=== PATIENT | female | born 1940 | race Caucasian/White ===

== ENCOUNTER 2017-07-30 14:36 | Inpatient (IN) | payer MEDICARE, OTHER ==
[~2017-07-30] VITALS: Ht 167.6 cm; Wt 73.1 kg
[2017-07-30] VITALS (11 sets, daily range): BP systolic 131–237; BP diastolic 60–108; PULSE 80–108; RESP 16–20; TEMP 97.9–98.5; O2SAT 94–100
[~2017-07-30 14:36] MED LIST: DARV PO; Z.0.NO CURRENT MEDS
--- NOTE | 2017-07-30 14:45 | PD ---
Physical Exam Date Seen by Provider: Jul 30, 2017 Time Seen by Provider: 14:43 Narrative 77 year old female here for Altered mental status for possibly less than an hour. Friend of patient here and saw patient last normal this am. Around an hour ago patient has become dishoriented with no other obvious neuro deficits. Alert but Oriented x 1 here which is not normal for patient. No obvious trauma. Very hypertensive in triage. Patient was straightback to a room for concern for stroke. Data Data Last Documented VS Vital Signs Date Time Temp Pulse Resp B/P (MAP) Pulse Ox O2 Delivery O2 Flow Rate FiO2 07/30/17:17 91 16 213/98 (136) 100 Nasal Cannula 2.00 07/30/17 14:43 98.5 Orders Orders Electrocardiogram (07/30/17 14:39) Complete Blood Count With Diff (07/30/17 14:39) Comprehensive Metabolic Panel (07/30/17 14:39) Ckmb (Isoenzyme) Profile (07/30/17 14:39) Troponin I (07/30/17 14:39) Prothrombin Time / Inr (Pt) (07/30/17 14:39) Act Partial Throm Time (Ptt) (07/30/17 14:39) Urinalysis - C+S If Indicated (07/30/17 14:39) Magnesium (Mg) (07/30/17 14:39) Thyroid Stimulating Hormone (07/30/17 14:39) Ct Brain W/O Iv Contrast(Rout) (07/30/17 14:39) I-Stat Creatinine (07/30/17 15:13) Labetalol Inj (Trandate Inj) (07/30/17 15:15) Chest, Single Ap (07/30/17 14:39) Nicardipine Inj (Cardene Inj) (07/30/17 15:30) I-Stat Profile (07/30/17 15:13) Labs Laboratory Tests Test 07/30/17 15:12 White Blood Count 6.0 TH/MM3 Red Blood Count 4.99 MIL/MM3 Hemoglobin 14.5 GM/DL Bedside Hemoglobin 14.3 G/DL Hematocrit 43.0 % Bedside Hematocrit 42.0 % Mean Corpuscular Volume 86.2 FL Mean Corpuscular Hemoglobin 29.0 PG Mean Corpuscular Hemoglobin Concent 33.7 % Red Cell Distribution Width 13.8 % Platelet Count 201 TH/MM3 Mean Platelet Volume 8.4 FL Neutrophils (%) (Auto) 59.5 % Lymphocytes (%) (Auto) 34.0 % Monocytes (%) (Auto) 5.0 % Eosinophils (%) (Auto) 1.2 % Basophils (%) (Auto) 0.3 % Neutrophils # (Auto) 3.6 TH/MM3 Lymphocytes # (Auto) 2.0 TH/MM3 Monocytes # (Auto) 0.3 TH/MM3 Eosinophils # (Auto) 0.1 TH/MM3 Basophils # (Auto) 0.0 TH/MM3 CBC Comment DIFF FINAL Differential Comment Bedside Sodium 139 MMOL/L Bedside Potassium 3.7 MMOL/L Bedside Chloride 102 MMOL/L Bedside Blood Urea Nitrogen 14 MG/DL Bedside Creatinine 0.7 MG/DL Bedside Glucose 123 MG/DL [facility] Medical Record Reviewed: Yes Supervised Visit with RIN: Leon Jenkins Jul 30, 2017 14:45
[2017-07-30] MEDS ORDERED: LABETALOL HCL 100 MG/20 ML VIAL IV PUSH ONE (15:15)
--- NOTE | 2017-07-30 15:23 | RADRPT ---
EXAM DATE/TIME: 07/30/2017 15:02 [facility] COMPARISON: No previous studies available for comparison. INDICATIONS : Altered mental status. RADIATION DOSE: 48.92 CTDIvol (mGy) This report was called to Dr. Alcala at 1516 p.m. MEDICAL HISTORY : None SURGICAL HISTORY : None. ENCOUNTER: Initial ACUITY: 1 day PAIN SCALE: Non-responsive LOCATION: cranial TECHNIQUE: Multiple contiguous axial images were obtained of the head. Using automated exposure control and adj ustment of the mA and/or kV according to patient size, radiation dose was kept as low as reasonably a chievable to obtain optimal diagnostic quality images. DICOM format image data is available electro nically for review and comparison. FINDINGS: CEREBRUM: Abnormal. There is a region of intra-axial hemorrhage in the posterior parietal high convexity subcor tical white matter measuring 1.6 x 0.9 cm. There is associated focal loss of cloud-white matter differ entiation. There is mild associated edema with minimal associated mass effect. The ventricles are nor mal for degree of atrophy. No evidence of midline shift. No extra-axial fluid collections are seen. POSTERIOR FOSSA: The cerebellum and brainstem are intact. The 4th ventricle is midline. The cerebellopontine angle i s unremarkable. EXTRACRANIAL: The visualized portion of the orbits is intact. SKULL: The calvaria is intact. No evidence of skull fracture. CONCLUSION: 1. Small focal region of intra-axial hemorrhage in the posterior parietal high convexity subcortical white matter measuring 1.6 x 0.9 cm with associated regional loss of cloud-white matter differentiatio n. Mild associated edema and minimal mass effect. No evidence for extra-axial hemorrhage, hydrocephal us, or herniation at this time. Findings are most consistent with hemorrhagic transformation of small posterior left MCA territory infarct. Differential considerations include mass with lesional hemorrh age. Jeremías Melton MD on July 30, 2017 at 15:13 Board Certified Radiologist. This report was verified electronically.
[2017-07-30] MEDS ORDERED: niCARdipine INJ 25 MG in SODIUM CHLOR 0.9% 250 ML INJ 240 ML IV ONE (15:30)
[2017-07-30 15:33] LABS: I-STAT POTASSIUM 3.7 MMOL/L (3.5-4.9)
[2017-07-30 15:34] LABS: AUTOMATED NEUTROPHIL # 3.6 TH/MM3 (1.8-7.7); BASOPHIL % 0.3 % (0.0-2.0); EOSINOPHIL # 0.1 TH/MM3 (0-0.4); EOSINOPHIL % 1.2 % (0.0-4.0); HEMO FLAGS DIFF FINAL; MEAN CELL VOLUME 86.2 FL (80.0-100.0); MEAN CORPUSCULAR HGB CONC 33.7 % (32.0-36.0); NEUT % 59.5 % (16.0-70.0); PLATELET COUNT 201 TH/MM3 (150-450); RED BLOOD COUNT 4.99 MIL/MM3 (4.00-5.30); RED CELL DISTRIBUTION WIDTH 13.8 % (11.6-17.2)
[2017-07-30 15:41] LABS: APTT (PATIENT) 27.1 SEC (24.3-30.1); INTERNATIONAL NORMALIZED RATIO 0.9 RATIO; PROTHROMBIN TIME - PATIENT 10.2 SEC (9.8-11.6)
--- NOTE | 2017-07-30 15:50 | RADRPT ---
EXAM DATE/TIME: 07/30/2017 15:20 [facility] COMPARISON: No previous studies available for comparison. INDICATIONS : Syncope. MEDICAL HISTORY : None. SURGICAL HISTORY : None. ENCOUNTER: Initial ACUITY: 1 day PAIN SCORE: Non-responsive. LOCATION: Bilateral chest FINDINGS: A single view of the chest demonstrates the lungs to be symmetrically aerated without evidence of mas s, infiltrate or effusion. The cardiomediastinal contours are unremarkable. Osseous structures are intact. CONCLUSION: 1. No acute cardiopulmonary disease. Jeremías Melton MD on July 30, 2017 at 15:48 Board Certified Radiologist. This report was verified electronically.
--- NOTE | 2017-07-30 15:54 | PD ---
HPI Chief Complaint: Stroke Alert Time Seen by Provider: 14:50 Travel History International Travel<30 days: No Contact w/Intl Traveler<30days: No Traveled to known affect area: No History of Present Illness HPI 77yo F was brought in by her best friend because she was unable to speak a little over an hour prior to arrival. She states pt's son said she was speaking normally over an hour ago. Actually currently able to speak more than before. Pt denies any complaints but upon examination, pt has expressive aphasia and cannot name items or do finger to nose test. NIH 4. Denies any anticoagulation. I called stroke alert upon my evaluation of the patient. BP was initially 237/108. PFSH Past Medical History ?: Not Social History Alcohol Use: No Tobacco Use: No Substance Use: No Allergies-Medications (Allergen,Severity, Reaction): Coded Allergies: meperidine (Unverified Allergy, Intermediate, 07/30/17) Reported Meds & Prescriptions Reported Meds & Active Scripts Active Darvocet-N 100 (Propoxyphene Napsylate/Acetam) Tab 1 Tab PO QIDPRN FOR PAIN Reported No Current Meds (Miscellaneous Medication) Misc Review of Systems Except as stated in HPI: all other systems reviewed are Neg Physical Exam Narrative GENERAL: 77yo F in mild distress. SKIN: Focused skin assessment warm/dry. HEAD: Atraumatic. Normocephalic. EYES: Pupils equal and round. No scleral icterus. No injection or drainage. ENT: No nasal bleeding or discharge. Mucous membranes pink and moist. NECK: Trachea midline. No JVD. CARDIOVASCULAR: Regular rate and rhythm. No murmur appreciated. RESPIRATORY: No accessory muscle use. Clear to auscultation. Breath sounds equal bilaterally. GASTROINTESTINAL: Abdomen soft, non-tender, nondistended. MUSCULOSKELETAL: No obvious deformities. No clubbing. No cyanosis. No edema. NEUROLOGICAL: Awake and alert. Expressive aphasia, unable to name items and unable to perform finger to nose test or heel to blanco. Speech is a little slow. Data Data Last Documented VS Vital Signs Date Time Temp Pulse Resp B/P (MAP) Pulse Ox O2 Delivery O2 Flow Rate FiO2 07/30/17 16:37 104 16 173/72 (105) 97 Nasal Cannula 2.00 07/30/17 14:43 98.5 Orders Orders Electrocardiogram (07/30/17 14:39) Complete Blood Count With Diff (07/30/17 14:39) Comprehensive Metabolic Panel (07/30/17 14:39) Ckmb (Isoenzyme) Profile (07/30/17 14:39) Troponin I (07/30/17 14:39) Prothrombin Time / Inr (Pt) (07/30/17 14:39) Act Partial Throm Time (Ptt) (07/30/17 14:39) Urinalysis - C+S If Indicated (07/30/17 14:39) Magnesium (Mg) (07/30/17 14:39) Thyroid Stimulating Hormone (07/30/17 14:39) Ct Brain W/O Iv Contrast(Rout) (07/30/17 14:39) I-Stat Creatinine (07/30/17 15:13) Labetalol Inj (Trandate Inj) (07/30/17 15:15) Chest, Single Ap (07/30/17 14:39) Nicardipine Inj (Cardene Inj) (07/30/17 15:30) I-Stat Profile (07/30/17 15:13) CKMB (07/30/17 15:12) CKMB% (07/30/17 15:12) Admit To Inpatient (07/30/17 ) Code Status (07/30/17 16:26) Vital Signs (Adult) NATHALIE.Q1H (07/30/17 16:26) Activity Bed Rest (07/30/17 16:26) Elevate Head Of Bed (07/30/17 16:26) Neuro Checks . ORDERED (07/30/17 16:26) Intake + Output Q1H (07/30/17 16:26) Diet Npo (07/30/17 Dinner) Sodium Chlor 0.9% 1000 Ml Inj (Ns 1000 M (07/30/17 16:26) Sodium Chloride 0.9% Flush (Ns Flush) (07/30/17 16:30) Sodium Chloride 0.9% Flush (Ns Flush) (07/30/17 21:00) Acetaminophen (Tylenol) (07/30/17 16:30) Famotidine Inj (Pepcid Inj) (07/30/17 21:00) Ondansetron Inj (Zofran Inj) (07/30/17 16:30) Albuterol Neb (Albuterol Neb) (07/30/17 16:30) Complete Blood Count With Diff (07/31/17 04:00) Comprehensive Metabolic Panel (07/31/17 04:00) Act Partial Throm Time (Ptt) (07/31/17 04:00) Prothrombin Time / Inr (Pt) (07/31/17 04:00) Magnesium (Mg) (07/31/17 04:00) Phosphorus (Po4) (07/31/17 04:00) Lactic Acid (07/31/17 04:00) Resp Incentive Spirometry (07/30/17 ) Resp Oxygen Conner C Titrat 1-4 L (07/30/17 ) Copy Messenger / Telemetry NATHALIE.Q8H (07/30/17 16:26) Scd Bilateral/Knee High NATHALIE.BID (07/30/17 16:26) ^ Initiate Protocol (07/30/17 16:26) Instruction (07/30/17 16:26) Misc Nursing Information (07/30/17 16:30) Chlorhexidine 2% Cloth (Chlorhexidine 2% (07/31/17 04:00) Chlorhexidine 2% Cloth (Chlorhexidine 2% (07/30/17 16:30) Mrsa Pcr Surveillance (07/30/17 16:26) Docusate Sodium-Senna (Amy-Colace) (07/30/17 21:00) Magnesium Hydroxide Liq (Milk Of Magnesi (07/30/17 16:30) Sennosides (Senokot) (07/30/17 16:30) Bisacodyl Supp (Dulcolax Supp) (07/30/17 16:30) Lactulose Liq (Lactulose Liq) (07/30/17 16:30) Inpatient Certification (07/30/17 ) Hydralazine Inj (Apresoline Inj) (07/30/17 16:30) Labetalol Inj (Trandate Inj) (07/30/17 16:30) Nitroglycerin 2% Oint (Nitroglycerin 2% (07/30/17 16:30) Admit Order (Ed Use Only) (07/30/17 16:43) Consult Neurosurgery (07/30/17 ) Labs Laboratory Tests Test 07/30/17 15:12 White Blood Count 6.0 TH/MM3 Red Blood Count 4.99 MIL/MM3 Hemoglobin 14.5 GM/DL Bedside Hemoglobin 14.3 G/DL Hematocrit 43.0 % Bedside Hematocrit 42.0 % Mean Corpuscular Volume 86.2 FL Mean Corpuscular Hemoglobin 29.0 PG Mean Corpuscular Hemoglobin Concent 33.7 % Red Cell Distribution Width 13.8 % Platelet Count 201 TH/MM3 Mean Platelet Volume 8.4 FL Neutrophils (%) (Auto) 59.5 % Lymphocytes (%) (Auto) 34.0 % Monocytes (%) (Auto) 5.0 % Eosinophils (%) (Auto) 1.2 % Basophils (%) (Auto) 0.3 % Neutrophils # (Auto) 3.6 TH/MM3 Lymphocytes # (Auto) 2.0 TH/MM3 Monocytes # (Auto) 0.3 TH/MM3 Eosinophils # (Auto) 0.1 TH/MM3 Basophils # (Auto) 0.0 TH/MM3 CBC Comment DIFF FINAL Differential Comment Prothrombin Time 10.2 SEC Prothromb Time International Ratio 0.9 RATIO Activated Partial Thromboplast Time 27.1 SEC Bedside Sodium 139 MMOL/L Blood Urea Nitrogen 13 MG/DL Creatinine 0.72 MG/DL Random Glucose 118 MG/DL Total Protein 7.5 GM/DL Albumin 4.0 GM/DL Calcium Level 9.4 MG/DL Magnesium Level 2.2 MG/DL Alkaline Phosphatase 111 U/L Aspartate Amino Transf (AST/SGOT) 14 U/L Alanine Aminotransferase (ALT/SGPT) 14 U/L Total Bilirubin 0.3 MG/DL Sodium Level 138 MEQ/L Potassium Level 3.7 MEQ/L Chloride Level 103 MEQ/L Carbon Dioxide Level 25.3 MEQ/L Bedside Potassium 3.7 MMOL/L Bedside Chloride 102 MMOL/L Anion Gap 10 MEQ/L Bedside Blood Urea Nitrogen 14 MG/DL Bedside Creatinine 0.7 MG/DL Estimat Glomerular Filtration Rate 78 ML/MIN Bedside Glucose 123 MG/DL Total Creatine Kinase 113 U/L Creatine Kinase MB 1.6 NG/ML Troponin I LESS THAN 0.02 NG/ML Thyroid Stimulating Hormone 3rd Gen 1.480 uIU/ML MDM Medical Decision Making Medical Screen Exam Complete: Yes Emergency Medical Condition: Yes Differential Diagnosis ICH vs. CVA vs. hypertensive emergency Narrative Course 77yo F with aphasia that improved but now has expressive aphasia. Stroke alert was called since onset is a little over an hour. Labs reviewed, no leukocytosis. BMP unremarkable. CXR showed no acute cardiopulmonary disease. CT brain showed small focal region of intra-axial hemorrhage in posterior parietal high convexity subcortical white matter. Findings consistent with hemorrhagic transformation of small posterior left MCA territory infarct. Pt is on nicardipine drip and repeat BP is 198/85 at 50ml/hr. Will increase and titrate for BP systolic <140. Discussed with neurosurgeon Dr. Slaughter. Labs reviewed, no leukocytosis. Troponin negative. TSH normal. Discussed with Dr. Farah accounting manager assistant controller, and accepted to his service. Critical Care Narrative Aggregate critical care time was 45 minutes. Time to perform other separately billable procedures was not included in the critical care time. My time did not include minutes spent treating any other patients simultaneously or on activities that did not directly contribute to the patient's treatment. The services I provided to this patient were to treat and/or prevent clinically significant deterioration that could result in: cardiovascular collapse or . I provided critical care services requiring my management, as noted below: Chart data review, documentation time, medication orders and management, vital sign assessments/reviewing monitor data, ordering and reviewing lab tests, ordering and interpreting/reviewing x-rays and diagnostic studies, care of the patient and discussion of the patient with the admitting physicians. Diagnosis Primary Impression: ICH (intracerebral hemorrhage) Qualified Codes: I61.0 - Nontraumatic intracerebral hemorrhage in hemisphere, subcortical Admitting Information Admitting Physician Requests: Admit Cathi Alcala DO Jul 30, 2017 15:54
--- NOTE | 2017-07-30 16:01 | PD.CONS ---
History of Present Illness Service Neurosurgery Consult Requested By Dr. Alcala -emergency room Reason for Consult Left parietal intracranial hemorrhage Primary Care Physician Unknown Diagnoses: History of Present Illness The patient is a 77-year-old female who presented to the emergency room less than an hour after developing altered mental status. According to a friend who brought her to the emergency room, the patient was relatively normal this morning. However shortly before arrival in the emergency room she became disoriented, confused, but no significant slurred speech or other deficit. She has been ambulating well. No definite weakness. No complaint of headache nausea vomiting or vision problems. Review of Systems Constitutional: DENIES: Fever Eyes: DENIES: Blurred vision, Diplopia Respiratory: DENIES: Shortness of breath Cardiovascular: DENIES: Chest pain Gastrointestinal: DENIES: Abdominal pain, Nausea Musculoskeletal: COMPLAINS OF: Joint pain, Muscle aches, DENIES: Neck pain Neurologic: DENIES: Abnormal gait, Headache Psychiatric: DENIES: Confusion Past Family Social History Allergies: Coded Allergies: meperidine (Unverified Allergy, Intermediate, 07/30/17) Past Medical History Hypertension Denies cardiac, pulmonary, gastrointestinal disease Past Surgical History Bladder surgery Reported Medications Reported Meds & Active Scripts Active Darvocet-N 100 (Propoxyphene Napsylate/Acetam) Tab 1 Tab PO QIDPRN FOR PAIN Reported No Current Meds (Miscellaneous Medication) Misc Family History Her parents had high blood pressure. No cardiac disease Social History Does not smoke cigarettes. No alcohol use Physical Exam Vital Signs Vital Signs Date Time Temp Pulse Resp B/P (MAP) Pulse Ox O2 Delivery O2 Flow Rate FiO2 07/30/17 15:42 91 213/98 07/30/17 15:17 91 16 213/98 (136) 100 Nasal Cannula 2.00 07/30/17 14:43 98.5 83 20 237/108 (151) 94 Room Air Physical Exam GENERAL: This is a well-nourished, well-developed patient, no apparent distress. SKIN: No abrasions, contusion, rash noted. Skin warm and dry. HEAD: Atraumatic. Normocephalic. No temporal or scalp tenderness. EYES: Sclerae are clear and nonicteric ENT: No facial edema or ecchymosis. No periorbital edema. No CSF otorrhea or rhinorrhea. No palpable facial fracture or deformity. NECK: Trachea midline. No cervical spine tenderness. CARDIOVASCULAR: Regular rate and rhythm without murmurs, gallops, or rubs. RESPIRATORY: Clear to auscultation. Breath sounds equal bilaterally. No wheezes , rales, or rhonchi. GASTROINTESTINAL: Abdomen soft, non-tender, nondistended. No hepato-splenomegaly , or palpable masses. No guarding. MUSCULOSKELETAL: Extremities without cyanosis, or edema. No joint tenderness, or edema noted. No calf tenderness. Dorsalis pedis pulses 2+ bilateral NEUROLOGICAL: Awake and alert Oriented X 3 Speech is somewhat slow but clear Conversant and appropriate Follow simple commands well Answers questions slowly but was appropriate responses At least mild diminished judgment and insight Recent and remote memory are mildly impaired No evidence of anxiety or depression Pupils are equal and reactive to accommodation. Extra-ocular movements, visual horn to confrontation, facial sensorimotor, tongue, palate, sternocleidomastoid testing, hearing to finger rub testing, and bilateral shoulder shrug are all intact. Sensation is intact to light touch in all extremities Strength normal major flexion and extension groups all extremities Orlando's absent bilaterally No ankle clonus Plantar responses absent bilateral Fine motor movements mildly impaired right versus left upper extremity Laboratory Laboratory Tests Test 07/30/17 15:12 White Blood Count 6.0 Red Blood Count 4.99 Hemoglobin 14.5 Bedside Hemoglobin 14.3 Hematocrit 43.0 Bedside Hematocrit 42.0 Mean Corpuscular Volume 86.2 Mean Corpuscular Hemoglobin 29.0 Mean Corpuscular Hemoglobin Concent 33.7 Red Cell Distribution Width 13.8 Platelet Count 201 Mean Platelet Volume 8.4 Neutrophils (%) (Auto) 59.5 Lymphocytes (%) (Auto) 34.0 Monocytes (%) (Auto) 5.0 Eosinophils (%) (Auto) 1.2 Basophils (%) (Auto) 0.3 Neutrophils # (Auto) 3.6 Lymphocytes # (Auto) 2.0 Monocytes # (Auto) 0.3 Eosinophils # (Auto) 0.1 Basophils # (Auto) 0.0 CBC Comment DIFF FINAL Differential Comment Prothrombin Time 10.2 Prothromb Time International Ratio 0.9 Activated Partial Thromboplast Time 27.1 Bedside Sodium 139 Bedside Potassium 3.7 Bedside Chloride 102 Bedside Blood Urea Nitrogen 14 Bedside Creatinine 0.7 Bedside Glucose 123 Result Diagram: 07/30/17 1512 Imaging 07/30/17 CT scan head images reviewed by the undersigned. Agree with findings as noted below: Head CT 07/30/17 1439 Signed Impressions: Service Date/Time: Sunday, July 30, 2017 15:02 - CONCLUSION: 1. Small focal region of intra-axial hemorrhage in the posterior parietal high convexity subcortical white matter measuring 1.6 x 0.9 cm with associated regional loss of cloud-white matter differentiation. Mild associated edema and minimal mass effect. No evidence for extra-axial hemorrhage, hydrocephalus, or herniation at this time. Findings are most consistent with hemorrhagic transformation of small posterior left MCA territory infarct. Differential considerations include mass with lesional hemorrhage. Jeremías Melton MD Assessment and Plan Assessment and Plan Impression: 1. Left posterior parietal convexity intracranial-subarachnoid hemorrhage. Hypertensive hemorrhage versus left MCA distribution-watershed region infarct. 2. Hypertension Recommendations: Findings were discussed with emergency room physician. Patient will be admitted to the intensive care unit for close vital signs and neurologic checks. Nicardipine infusion instituted for initial blood pressure control with target 110-140 range. Non-chemical DVT prophylaxis Ulcer prophylaxis Follow-up CT scan head for 07/31/17 Radhames Slaughter MD Jul 30, 2017 16:01
[2017-07-30 16:02] LABS: ANION GAP 10 MEQ/L (5-15); AST (GOT) 14 U/L (15-37); BICARBONATE 25.3 MEQ/L (21.0-32.0); BLOOD UREA NITROGEN 13 MG/DL (7-18); CHLORIDE 103 MEQ/L (98-107); GLOMERULAR FILTRATION RATE 78 ML/MIN (>89); MAGNESIUM 2.2 MG/DL (1.5-2.5); POTASSIUM 3.7 MEQ/L (3.5-5.1); SODIUM (NA) 138 MEQ/L (136-145)
[2017-07-30 16:03] LABS: ALT (GPT) 14 U/L (10-53)
[2017-07-30 16:12] LABS: ALKALINE PHOSPHATASE 111 U/L (45-117); CREATINE KINASE 113 U/L (26-192); TOTAL BILIRUBIN ADULT 0.3 MG/DL (0.2-1.0)
[2017-07-30 16:25] LABS: CKMB 1.6 NG/ML (0.5-3.6)
[2017-07-30] MEDS ORDERED: LACTULOSE SYRUP 20 GM/30 ML CUP PO PRN (16:30)
[2017-07-30] MEDS ORDERED: BISACODYL 10 MG SUPP RECTAL PRN (16:30)
[2017-07-30] MEDS ORDERED: RESP: ALBUTEROL 2.5 MG/3 ML NEB (PRN) INH (16:30)
[2017-07-30] MEDS ORDERED: SODIUM CHLORIDE 0.9% FLUSH 10 ML FLUSH IV FLUSH PRN (16:30)
[2017-07-30] MEDS ORDERED: SENNOSIDES 8.6 MG TAB PO PRN (16:30)
[2017-07-30] MEDS ORDERED: NITROGLYCERIN 2% OINT 1 GM PACKET TOPICAL PRN (16:30)
[2017-07-30] MEDS ORDERED: MISCELLANEOUS NURSING INFORMATION XX SCH (16:30)
[2017-07-30] MEDS ORDERED: CHLORHEXIDINE GLUCONATE 2 % 1 PACK (2 CLOTHS) TOP PRN (16:30)
[2017-07-30] MEDS ORDERED: MAGNESIUM HYDROXIDE SUSP 30 ML CUP PO PRN (16:30)
--- NOTE | 2017-07-30 17:04 | HHI.HP ---
[facility] Service Critical Care Medicine Primary Care Physician Allen Cannon MD Admission Diagnosis intracranial hemorrhage Diagnosis: (1) Hypertensive crisis Diagnosis: Principal (2) ICH (intracerebral hemorrhage) Diagnosis: Principal Chief Complaint: Altered mental status Travel History International Travel<30 Days: No Contact w/Intl Traveler <30 Da: No Traveled to Known Affected Are: No History of Present Illness 77-year-old female. Date of admission 07/30/2017. Past medical history includes hypertension patient presented to [facility] ED when after adequate acute confusional state per friend at bedside. Patient was somewhat disoriented and had unsteady gait. On examination, patient does have right upper extremity weakness. Stroke alert was called and patient was sent for stat CT. Baseline laboratories were within normal limits CT braiin 07/30 revealed small focal region of intra-axial hemorrhage in the posterior parietal high convexity subcortical white matter measuring 1.6 x 0.9 cm with associated regional loss of cloud-white matter differentiation. Mild associated edema and minimal mass effect. No evidence for extra-axial hemorrhage, hydrocephalus, or herniation at this time. Findings are most consistent with hemorrhagic transformation of small posterior left MCA territory infarct. Differential considerations include mass with lesional hemorrhage. Neurosurgery was consulted. Hypertensive hemorrhage versus left MCA distribution -watershed region infarct. Recommend acute systolic blood pressure between 110 and 140[address] head CT in a.m. Review of Systems ROS Limitations: Altered Mental Status Past Family Social History Allergies: Coded Allergies: meperidine (Unverified Allergy, Intermediate, 07/30/17) Past Medical History Hypertension Past Surgical History Bladder sling Reported Medications Darvocet when necessary Active Ordered Medications Reviewed in EMR Family History Brother with diabetes. Mother and father with hypertension. Social History Social alcohol. No tobacco or IV drug use Physical Exam Vital Signs Vital Signs Date Time Temp Pulse Resp B/P (MAP) Pulse Ox O2 Delivery O2 Flow Rate FiO2 07/30/17 16:37 104 16 173/72 (105) 97 Nasal Cannula 2.00 07/30/17 16:10 108 16 189/87 (121) 100 Nasal Cannula 2.00 07/30/17 15:42 91 213/98 07/30/17 15:17 91 16 213/98 (136) 100 Nasal Cannula 2.00 07/30/17 14:43 98.5 83 20 237/108 (151) 94 Room Air Physical Exam GENERAL: SKIN: Warm and dry. HEAD: Atraumatic. Normocephalic. EYES: Pupils equal and round. No scleral icterus. No injection or drainage. ENT: No nasal bleeding or discharge. Mucous membranes pink and moist. NECK: Trachea midline. No JVD. CARDIOVASCULAR: Regular rate and rhythm. RESPIRATORY: No accessory muscle use. Clear to auscultation. Breath sounds equal bilaterally. GASTROINTESTINAL: Abdomen soft, non-tender, nondistended. Hepatic and splenic margins not palpable. MUSCULOSKELETAL: Extremities without clubbing, cyanosis, or edema. No obvious deformities. NEUROLOGICAL: Awake and alert. No obvious cranial nerve deficits. Motor grossly within normal limits. Five out of 5 muscle strength in the arms and legs. Normal speech. PSYCHIATRIC: Appropriate mood and affect; insight and judgment normal. Laboratory Laboratory Tests Test 07/30/17 15:12 White Blood Count 6.0 Red Blood Count 4.99 Hemoglobin 14.5 Bedside Hemoglobin 14.3 Hematocrit 43.0 Bedside Hematocrit 42.0 Mean Corpuscular Volume 86.2 Mean Corpuscular Hemoglobin 29.0 Mean Corpuscular Hemoglobin Concent 33.7 Red Cell Distribution Width 13.8 Platelet Count 201 Mean Platelet Volume 8.4 Neutrophils (%) (Auto) 59.5 Lymphocytes (%) (Auto) 34.0 Monocytes (%) (Auto) 5.0 Eosinophils (%) (Auto) 1.2 Basophils (%) (Auto) 0.3 Neutrophils # (Auto) 3.6 Lymphocytes # (Auto) 2.0 Monocytes # (Auto) 0.3 Eosinophils # (Auto) 0.1 Basophils # (Auto) 0.0 CBC Comment DIFF FINAL Differential Comment Prothrombin Time 10.2 Prothromb Time International Ratio 0.9 Activated Partial Thromboplast Time 27.1 Bedside Sodium 139 Blood Urea Nitrogen 13 Creatinine 0.72 Random Glucose 118 Total Protein 7.5 Albumin 4.0 Calcium Level 9.4 Magnesium Level 2.2 Alkaline Phosphatase 111 Aspartate Amino Transf (AST/SGOT) 14 Alanine Aminotransferase (ALT/SGPT) 14 Total Bilirubin 0.3 Sodium Level 138 Potassium Level 3.7 Chloride Level 103 Carbon Dioxide Level 25.3 Bedside Potassium 3.7 Bedside Chloride 102 Anion Gap 10 Bedside Blood Urea Nitrogen 14 Bedside Creatinine 0.7 Estimat Glomerular Filtration Rate 78 Bedside Glucose 123 Total Creatine Kinase 113 Creatine Kinase MB 1.6 Troponin I LESS THAN 0.02 Thyroid Stimulating Hormone 3rd Gen 1.480 Result Diagram: 07/30/17 1512 07/30/17 1512 Imaging Last Impressions Head CT 07/30/17 1439 Signed Impressions: Service Date/Time: Sunday, July 30, 2017 15:02 - CONCLUSION: 1. Small focal region of intra-axial hemorrhage in the posterior parietal high convexity subcortical white matter measuring 1.6 x 0.9 cm with associated regional loss of cloud-white matter differentiation. Mild associated edema and minimal mass effect. No evidence for extra-axial hemorrhage, hydrocephalus, or herniation at this time. Findings are most consistent with hemorrhagic transformation of small posterior left MCA territory infarct. Differential considerations include mass with lesional hemorrhage. Jeremías Melton MD Chest X-Ray 07/30/171438 Signed Impressions: Service Date/Time: Sunday, July 30, 2017 15:20 - CONCLUSION: 1. No acute cardiopulmonary disease. MD Abimael Knight VTE Risk Assessment Caprini VTE Risk Assessment: Mod/High Risk (score >= 2) Caprini Risk Assessment Model Point Value = 1 Point Value = 2 Point Value = 3 Point Value = 5 Age 41-60 Minor surgery BMI > 25 kg/m2 Swollen legs Varicose veins or History of unexplained or recurrent spontaneous Oral contraceptives or hormone replacement Sepsis (< 1 month) Serious lung disease, including pneumonia (< 1 month) Abnormal pulmonary function Acute myocardial infarction Congestive heart failure (< 1 month) History of inflammatory bowel disease Medical patient at bed rest Age 61-74 Arthroscopic surgery Major open surgery (> 45 min) Laparoscopic surgery (> 45 min) Malignancy Confined to bed (> 72 hours) Immobilizing plaster cast Central venous access Age >= 75 History of VTE Family history of VTE Factor V Leiden Prothrombin [id number] Lupus anticoagulant Anticardiolipin antibodies Elevated serum homocysteine Heparin-induced thrombocytopenia Other congenital or acquired thrombophilia Stroke (< 1 month) Elective arthroplasty Hip, pelvis, or leg fracture Acute spinal cord injury (< 1 month) Prophylaxis Regimen Total Risk Factor Score Risk Level Prophylaxis Regimen 0-1 Low Early ambulation 2 Moderate Order ONE of the following: *Sequential Compression Device (SCD) *Heparin 5000 units SQ BID 3-4 Higher Order ONE of the following medications: *Heparin 5000 units SQ TID *Enoxaparin/Lovenox 40 mg SQ daily (WT < 150 kg, CrCl > 30 mL/min) *Enoxaparin/Lovenox 30 mg SQ daily (WT < 150 kg, CrCl > 10-29 mL/min) *Enoxaparin/Lovenox 30 mg SQ BID (WT < 150 kg, CrCl > 30 mL/min) AND/OR *Sequential Compression Device (SCD) 5 or more Highest Order ONE of the following medications: *Heparin 5000 units SQ TID (Preferred with Epidurals) *Enoxaparin/Lovenox 40 mg SQ daily (WT < 150 kg, CrCl > 30 mL/min) *Enoxaparin/Lovenox 30 mg SQ daily (WT < 150 kg, CrCl > 10-29 mL/min) *Enoxaparin/Lovenox 30 mg SQ BID (WT < 150 kg, CrCl > 30 mL/min) AND *Sequential Compression Device (SCD) Assessment and Plan Assessment and Plan Neuro/Psych: Left parietal intraaxial hemorrhage Expressive aphasia CT brain 07/30 - Small focal region of intra-axial hemorrhage in the posterior parietal high convexity subcortical white matter measuring 1.6 x 0.9 cm with associated regional loss of cloud-white matter differentiation. Mild associated edema and minimal mass effect. No evidence for extra-axial hemorrhage, hydrocephalus, or herniation at this time. Findings are most consistent with hemorrhagic transformation of small posterior left MCA territory infarct. Neurosurgery - Dr. Slaughter recommends to systolic pressure between 110-140. repeat head CT in a.m. CV: Hypertension crisis Currently on Cardene drip to keep systolic pressure was 140 As needed labetalol, hydralazine and Nitropaste ordered as well Patient is noncompliant with anti-hypertensive according to people bedside Resp: Nasal cannula to maintain saturations greater than equal to 92% Incentive spirometry while awake GI: Nothing by mouth Famotidine for GI prophylaxis Docusate sodium/senna for bowel regimen : No indication for Morales catheter Endo: Sliding-scale insulin if indicated to maintain euglycemia Renal: Creatinine currently within normal limits Currently normal saline at 70 cc an hour Heme: CBC and coags within normal limits ID: Monitor for infection MSK: Physical therapy evaluate and treat FEN: Replace electrolytes as clinically indicated Access - Utilize peripheral IV. Central line if indicated Prophylaxis - GI -famotidine - DVT - SCD/pharmacological prophylaxis contra indicated with intracerebral hemorrhage Critical Care: The total critical care time was 35 minutes. Time to perform other separately billable procedures was not included in the critical care time. Code Status Full code Discussed Condition With Daughter. Dr. Alcala. Care plan discussed and all questions answered. Problem Qualifiers (1) ICH (intracerebral hemorrhage): Qualified Codes: I61.0 - Nontraumatic intracerebral hemorrhage in hemisphere, subcortical Rashad Farah MD Jul 30, 2017 17:04
[2017-07-30] MEDS: ONDANSETRON HCL 4 MG/2 ML VIAL IV PUSH PRN (19:06)
[2017-07-30] MEDS: SODIUM CHLOR 0.9% 1000 ML INJ 1,000 ML IV SCH (20:00)
[2017-07-30] MEDS: DOCUSATE SODIUM 50 MG/SENNA 8.6 MG TAB PO SCH (21:00)
[2017-07-30] MEDS: SODIUM CHLORIDE 0.9% FLUSH 10 ML FLUSH IV FLUSH SCH (22:16)
[2017-07-30] MEDS: FAMOTIDINE 20 MG/2 ML VIAL IV PUSH SCH (22:17)
[2017-07-31] VITALS (11 sets, daily range): BP systolic 124–147; BP diastolic 58–88; PULSE 61–83; RESP 16–23; TEMP 97.5–98.6; O2SAT 95–98
[2017-07-31] MEDS: niCARdipine 25 MG/NS 250 ML Vial2Bag or IV room IV PRN ×4 (00:25→05:50)
[2017-07-31] MEDS: CHLORHEXIDINE GLUCONATE 2 % 1 PACK (2 CLOTHS) TOP SCH (04:00)
[2017-07-31 04:56] LABS: AUTOMATED NEUTROPHIL # 5.7 TH/MM3 (1.8-7.7); BASOPHIL % 0.5 % (0.0-2.0); EOSINOPHIL % 0.6 % (0.0-4.0); HEMO FLAGS DIFF FINAL; LYMPH % 20.6 % (9.0-44.0); LYMPHOCYTE # 1.6 TH/MM3 (1.0-4.8); MEAN CELL VOLUME 86.8 FL (80.0-100.0); MEAN CORPUSCULAR HEMOGLOBIN 29.3 PG (27.0-34.0); MEAN CORPUSCULAR HGB CONC 33.8 % (32.0-36.0); MONO % 4.7 % (0.0-8.0); NEUT % 73.6 % (16.0-70.0); PLATELET COUNT 201 TH/MM3 (150-450); RED BLOOD COUNT 4.72 MIL/MM3 (4.00-5.30); RED CELL DISTRIBUTION WIDTH 13.6 % (11.6-17.2); WHITE BLOOD COUNT 7.7 TH/MM3 (4.0-11.0)
[2017-07-31 05:05] LABS: APTT (PATIENT) 26.8 SEC (24.3-30.1); INTERNATIONAL NORMALIZED RATIO 0.9 RATIO; PROTHROMBIN TIME - PATIENT 10.3 SEC (9.8-11.6)
--- NOTE | 2017-07-31 05:09 | RADRPT ---
EXAM DATE/TIME: 07/31/2017 04:55 [facility] COMPARISON: CT BRAIN W/O CONTRAST, July 30, 2017, 15:02. INDICATIONS : Follow up intracranial hemorrhage. RADIATION DOSE: 32.16 CTDIvol (mGy) MEDICAL HISTORY : None SURGICAL HISTORY : None. ENCOUNTER: Subsequent ACUITY: 1 day PAIN SCALE: Non-responsive LOCATION: cranial TECHNIQUE: Multiple contiguous axial images were obtained of the head. Using automated exposure control and adj ustment of the mA and/or kV according to patient size, radiation dose was kept as low as reasonably a chievable to obtain optimal diagnostic quality images. DICOM format image data is available electro nically for review and comparison. FINDINGS: Minimal parenchymal contusion in the high convexity left parietal region is unchanged. No new acute f indings identified. Ventricles are stable symmetric and normal. There is nothing to suggest acute inf arction. No evidence of brain mass. Extracranial structures are stable CONCLUSION: Stable brain appearance Gee Naik MD on July 31, 2017 at 5:05 Board Certified Radiologist. This report was verified electronically.
[2017-07-31 05:27] LABS: ANION GAP 7 MEQ/L (5-15); AST (GOT) 11 U/L (15-37); BICARBONATE 25.8 MEQ/L (21.0-32.0); BLOOD UREA NITROGEN 7 MG/DL (7-18); CHLORIDE 106 MEQ/L (98-107); GLOMERULAR FILTRATION RATE 119 ML/MIN (>89); MAGNESIUM 2.1 MG/DL (1.5-2.5); POTASSIUM 3.5 MEQ/L (3.5-5.1); SODIUM (NA) 139 MEQ/L (136-145)
[2017-07-31 05:33] LABS: ALKALINE PHOSPHATASE 102 U/L (45-117); ALT (GPT) 13 U/L (10-53); TOTAL BILIRUBIN ADULT 0.4 MG/DL (0.2-1.0)
[2017-07-31] MEDS: SODIUM CHLOR 0.9% 1000 ML INJ 1,000 ML IV SCH ×2 (05:58→16:16)
[2017-07-31] MEDS: DOCUSATE SODIUM 50 MG/SENNA 8.6 MG TAB PO SCH ×2 (09:00→21:03)
[2017-07-31] MEDS: SODIUM CHLORIDE 0.9% FLUSH 10 ML FLUSH IV FLUSH SCH ×2 (09:00→21:04)
[2017-07-31] MEDS: FAMOTIDINE 20 MG/2 ML VIAL IV PUSH SCH ×2 (10:00→21:03)
--- NOTE | 2017-07-31 10:41 | HHI.CCPN ---
Subjective Remarks/Hospital Course 77-year-old female. Date of admission 07/30/2017. Past medical history includes hypertension patient presented to [facility] ED when after adequate acute confusional state per friend at bedside. Patient was somewhat disoriented and had unsteady gait. On examination, patient does have right upper extremity weakness. Stroke alert was called and patient was sent for stat CT. Baseline laboratories [facility] revealed small focal region of intra-axial hemorrhage in the posterior parietal high convexity subcortical white matter measuring 1.6 x 0.9 cm with associated regional loss of cloud-white matter differentiation. Mild associated edema and minimal mass effect. No evidence for extra-axial hemorrhage, hydrocephalus, or herniation at this time. Findings are most consistent with hemorrhagic transformation of small posterior left MCA territory infarct. Differential considerations include mass with lesional hemorrhage. Neurosurgery was consulted. Hypertensive hemorrhage versus left MCA distribution -watershed region infarct. Recommend acute systolic blood pressure between 110 and 140[address] in a.m. SUBJECTIVE: 07/31: Currently resting in bed in no acute distress. Right-sided weakness resolved. Awake and oriented person place but not year. Expressive aphasia much improved. Denies headache. Objective Vital Signs Date Time Temp Pulse Resp B/P (MAP) Pulse Ox O2 Delivery O2 Flow Rate FiO2 07/31/17 08:22 95 Nasal Cannula 2.00 07/31/17 06:00 69 07/31/17 06:00 97.5 20 127/58 (81) Intake and Output 07/31/17 07/31/17 07/31/17 07:59 15:59 23:59 Intake Total 1542 ml Output Total 1000 ml Balance 542 ml Result Diagram: 07/31/17 0443 07/31/17 0443 Imaging Last Impressions Head CT 07/31/17 0600 Signed Impressions: Service Date/Time: Monday, July 31, 2017 04:55 - CONCLUSION: Stable brain appearance Gee Naik MD Chest X-Ray 07/30/17 0939 Signed Impressions: Service Date/Time: Sunday, July 30, 2017 15:20 - CONCLUSION: 1. No acute cardiopulmonary disease. Jeremías Melton MD Objective Remarks GENERAL: 69-year-old female, critically ill currently resting in bed in no acute distress SKIN: Warm and dry. HEAD: Atraumatic. Normocephalic. EYES: Pupils equal and round. No scleral icterus. No injection or drainage. ENT: No nasal bleeding or discharge. Mucous membranes pink and moist. NECK: Trachea midline. No JVD. CARDIOVASCULAR: Regular rate and rhythm. S1, S2. No S4. RESPIRATORY: No accessory muscle use. Clear to auscultation. Breath sounds equal bilaterally. GASTROINTESTINAL: Abdomen soft, non-tender, nondistended. Hepatic and splenic margins not palpable. MUSCULOSKELETAL: Extremities without clubbing, cyanosis, or edema. No obvious deformities. NEUROLOGICAL: Awake and alert. No obvious cranial nerve deficits. Motor grossly within normal limits. Five out of 5 muscle strength in the arms and legs. Expressive aphasia A/P Assessment and Plan Neuro/Psych: Left parietal intraaxial hemorrhage Expressive aphasia CT brain 07/30 - Small focal region of intra-axial hemorrhage in the posterior parietal high convexity subcortical white matter measuring 1.6 x 0.9 cm with associated regional loss of cloud-white matter differentiation. Mild associated edema and minimal mass effect. No evidence for extra-axial hemorrhage, hydrocephalus, or herniation at this time. Findings are most consistent with hemorrhagic transformation of small posterior left MCA territory infarct. Neurosurgery - Dr. Slaughter recommends to systolic pressure between 110-140. repeat head CT in a.m. 07/31 stable CV: Hypertension crisis Currently on Cardene drip to keep systolic pressure was 140 and currently at 5 mg an hour As needed labetalol, hydralazine and Nitropaste ordered as well We'll start lisinopril 5 mg twice a day and amlodipine 2.5 mg daily Patient is noncompliant with anti-hypertensive according to people bedside Resp: Nasal cannula to maintain saturations greater than equal to 92% Incentive spirometry while awake GI: Nothing by mouth. Advance diet per speech therapy Famotidine for GI prophylaxis Docusate sodium/senna for bowel regimen : No indication for Morales catheter Endo: Sliding-scale insulin if indicated to maintain euglycemia Renal: Creatinine currently within normal limits Currently normal saline at 70 cc an hour Heme: CBC and coags within normal limits ID: Monitor for infection MSK: Physical therapy evaluate and treat FEN: Replace electrolytes as clinically indicated Access - Utilize peripheral IV. Central line if indicated Prophylaxis - GI -famotidine - DVT - SCD/pharmacological prophylaxis contra indicated with intracerebral hemorrhage Level II follow-up Rashad Farah MD Jul 31, 2017 10:41
[2017-07-31] MEDS ORDERED: ENALAPRILAT 2.5 MG/2 ML VIAL IV PUSH PRN (11:00)
--- NOTE | 2017-07-31 11:29 | RADRPT ---
EXAM DATE/TIME: 07/31/2017 10:28 [facility] COMPARISON: No previous studies available for comparison. INDICATIONS : Cerebrovascular accident. MEDICAL HISTORY : Hypertension. Intracranial hemorrhage. Altered mental status. SURGICAL HISTORY : Bladder sling. ENCOUNTER: Initial ACUITY: 1 day PAIN SCORE: 2/10 LOCATION: Bilateral neck PEAK SYSTOLIC VELOCITIES (cm/sec): ICA/CCA RATIO: Right: 1.3 Left: 0.7 ICA: Right: 122 Left: 80 CCA: Right: 93 Left: 108 ECA: Right: 171 Left: 127 VERTEBRAL: Right: 49 antegrade Left: 56 antegrade Elevated flow velocities and ICA/CCA ratios have been found to correlate with increased degrees of vessel stenosis, calculated as percentage of diameter relative to a normal segment of distal ICA/CCA FINDINGS: RIGHT CAROTID: There is no evidence for a hemodynamically significant carotid stenosis. Minimal int imal hyperplasia is present with scattered calcific plaque. LEFT CAROTID: There is no evidence for a hemodynamically significant carotid stenosis. Minimal inti mal hyperplasia is present with scattered calcific plaque. VERTEBRAL ARTERIES: Flow is antegrade in both vertebral arteries. MISCELLANEOUS: There are no ancillary masses or adenopathy. CONCLUSION: Negative examination for a hemodynamically significant carotid stenosis. Board Certified Radiologist. This report was verified electronically.
[2017-07-31] MEDS ORDERED: amLODIPine BESYLATE 5 MG TAB PO ONE (11:30)
[2017-07-31] MEDS ORDERED: PILL SPLITTER OTHER PRN (11:30)
[2017-07-31] MEDS: LISINOPRIL 5 MG TAB PO SCH ×2 (11:32→21:03)
--- NOTE | 2017-07-31 17:18 | ECHRPT ---
Indication: CVA/TIA CONCLUSIONS The left ventricular systolic function is hyperdynamic with an estimated ejection fraction in the ra nge of 65- 70%. Wall thickness is measured at the upper limits of normal. Normal left ventricular size. There is mild tricuspid valve regurgitation. The estimated pulmonary arterial pressure is 45 mmHg. BP: 127 / 58 HR: 63 Rhythm: Sinus MEASUREMENTS (Male / Female) Normal Values Technical Quality:Good 2D ECHO LV Diastolic Diameter PLAX 5.0 cm 4.2 - 5.9 / 3.9 - 5.3 cm LV Systolic Diameter PLAX 3.5 cm IVS Diastolic Thickness 1.1 cm 0.6 - 1.0 / 0.6 - 0.9 cm LVPW Diastolic Thickness 1.1 cm 0.6 - 1.0 / 0.6 - 0.9 cm LV Relative Wall Thickness 0.5 LVOT Diameter 2.3 cm M-MODE Aortic Root Diameter MM 2.5 cm LA Systolic Diameter MM 3.8 cm LA Ao Ratio MM 1.5 AV Cusp Separation MM 1.7 cm DOPPLER AV Peak Velocity 172.0 cm/s AV Peak Gradient 11.8 mmHg LVOT Peak Velocity 113.0 cm/s LVOT Peak Gradient 5.1 mmHg AV Area Cont Eq pk 2.7 cm Mitral E Point Velocity 84.9 cm/s Mitral A Point Velocity 98.7 cm/s Mitral E to A Ratio 0.9 LV E' Lateral Velocity 6.3 cm/s Mitral E to LV E' Lateral Ratio 13.4 LV E' Septal Velocity 5.4 cm/s Mitral E to LV E' Septal Ratio 15.8 TR Peak Velocity 296.0 cm/s TR Peak Gradient 35.0 mmHg Right Atrial Pressure 10.0 mmHg Pulmonary Artery Systolic Pressu 45.0 mmHg Right Ventricular Systolic Press 45.0 mmHg PV Peak Velocity 115.0 cm/s PV Peak Gradient 5.3 mmHg FINDINGS LEFT VENTRICLE The left ventricular systolic function is hyperdynamic with an estimated ejection fraction in the ra nge of 65- 70%. Wall thickness is measured at the upper limits of normal. Normal left ventricular size. RIGHT VENTRICLE Normal right ventricular size and systolic function. LEFT ATRIUM The left atrial size is normal. RIGHT ATRIUM The right atrial size is normal. ATRIAL SEPTUM Normal atrial septal thickness without atrial level shunting by limited color doppler interrogation. AORTA The aortic root and proximal ascending aorta are normal in size on limited imaging. MITRAL VALVE Structurally normal mitral valve. No mitral valve stenosis or regurgitation. AORTIC VALVE Trileaflet aortic valve. No aortic valve stenosis or regurgitation. TRICUSPID VALVE There is mild tricuspid valve regurgitation. The estimated pulmonary arterial pressure is 45 mmHg. PULMONARY VALVE No pulmonary valve regurgitation or stenosis. VESSELS The inferior vena cava is normal in size. PERICARDIUM No pericardial effusion. Samia Martins MD, FACC (Electronically Signed) Final Date:31 July 2017 17:17
--- NOTE | 2017-07-31 20:17 | HHI.NSPN ---
History Chief Complaint: no complaints Interval History 77-year-old female with acute onset of speech deficit, right side weakness Initial CT scan with left parietal proximal hemorrhage. 07/31/17: Doing well with diet, ambulated well in therapy today. No complaint of headache. Exam Results Vital Signs Date Time Temp Pulse Resp B/P (MAP) Pulse Ox O2 Delivery O2 Flow Rate FiO2 07/31/17 16:00 98.6 72 23 140/63 (88) 07/31/17 08:22 95 Nasal Cannula 2.00 Intake and Output 07/31/17 07/31/17 07/31/17 07:59 15:59 23:59 Intake Total 1542 ml 1846 ml Output Total 1000 ml 1600 ml Balance 542 ml 246 ml Physical Examination Respirations clear and nonlabored Heart rate regular Abdomen soft Awake and alert Oriented X 3 Speech is clear Conversant and appropriate Follow simple commands well Answers questions appropriately Reasonable judgment and insight Recent and remote memory mildly impaired. No evidence of anxiety or depression Pupils are equal and reactive to accommodation. Extra-ocular movements, visual horn to confrontation, facial sensorimotor, tongue, palate, sternocleidomastoid testing, hearing to finger rub testing, and bilateral shoulder shrug are all intact. Sensation is intact to light touch in all extremities Strength normal major flexion and extension groups all extremities . No definite residual right hemiparesis Orlando's absent bilaterally No ankle clonus Plantar responses absent bilateral Fine motor movements mildly slowed right greater than left upper extremities Lab, Micro, Other Results 07/31/17 CT scan head images reviewed by the undersigned. There is early improvement in the left parietal parenchymal hemorrhage, now very faint and without significant mass effect. Head CT 07/31/17 0600 Signed Impressions: Service Date/Time: Monday, July 31, 2017 04:55 - CONCLUSION: Stable brain appearance Gee Naik MD Carotid Artery Ultrasound 07/31/17 0000 Signed Impressions: Service Date/Time: Monday, July 31, 2017 10:28 - CONCLUSION: Negative examination for a hemodynamically significant carotid stenosis. Board Certified Radiologist. This report was verified electronically. Laboratory Tests Test 07/31/17 04:43 10/11/17 07:15 White Blood Count 7.7 TH/MM3 Red Blood Count 4.72 MIL/MM3 Hemoglobin 13.8 GM/DL Hematocrit 41.0 % Mean Corpuscular Volume 86.8 FL Mean Corpuscular Hemoglobin 29.3 PG Mean Corpuscular Hemoglobin Concent 33.8 % Red Cell Distribution Width 13.6 % Platelet Count 201 TH/MM3 Mean Platelet Volume 8.1 FL Neutrophils (%) (Auto) 73.6 % Lymphocytes (%) (Auto) 20.6 % Monocytes (%) (Auto) 4.7 % Eosinophils (%) (Auto) 0.6 % Basophils (%) (Auto) 0.5 % Neutrophils # (Auto) 5.7 TH/MM3 Lymphocytes # (Auto) 1.6 TH/MM3 Monocytes # (Auto) 0.4 TH/MM3 Eosinophils # (Auto) 0.0 TH/MM3 Basophils # (Auto) 0.0 TH/MM3 CBC Comment DIFF FINAL Differential Comment Prothrombin Time 10.3 SEC Prothromb Time International Ratio 0.9 RATIO Activated Partial Thromboplast Time 26.8 SEC Blood Urea Nitrogen 7 MG/DL Creatinine 0.50 MG/DL Random Glucose 117 MG/DL Total Protein 7.1 GM/DL Albumin 3.7 GM/DL Calcium Level 8.8 MG/DL Phosphorus Level 2.0 MG/DL Magnesium Level 2.1 MG/DL Alkaline Phosphatase 102 U/L Aspartate Amino Transf (AST/SGOT) 11 U/L Alanine Aminotransferase (ALT/SGPT) 13 U/L Total Bilirubin 0.4 MG/DL Sodium Level 139 MEQ/L Potassium Level 3.5 MEQ/L Chloride Level 106 MEQ/L Carbon Dioxide Level 25.8 MEQ/L Anion Gap 7 MEQ/L Estimat Glomerular Filtration Rate 119 ML/MIN Lactic Acid Level 0.6 mmol/L Nasal Screen MRSA (PCR) MRSA NOT DETECTED Medical Decision Making Impression and Plan Impression: 1. Neurologic status improved compared to admission. Mild confusion versus mild speech deficit-word finding difficulty. No residual right hemiparesis. CT scan 07/31/17 improved compared to admission Recommendations From a neurosurgical standpoint, she may be transferred to regular floor when medically stable. Wean off Cardene, oral when necessary medications for blood pressure control. Should be stable for blood pressure 110-150 now. PT and STT notes reviewed. Tolerating diet well and ambulates 600 feet in therapy today with minimal assist. Radhames Slaughter MD Jul 31, 2017 20:17
--- NOTE | 2017-07-31 23:52 | EKG ---
Date Performed: 07/30/2017 Time Performed: 16:28:32 PTAGE: 77 years EKG: Sinus rhythm NONSPECIFIC ST & T-WAVE ABNORMALITY BORDERLINE ECG NO PREVIOUS TRACING DOCTOR: Dmitri Serra Interpretating Date/Time 07/31/2017 23:50:32
[2017-07-31] MEDS: LABETALOL HCL 100 MG/20 ML VIAL IV PUSH PRN (23:58)
[2017-08-01] VITALS (13 sets, daily range): BP systolic 130–166; BP diastolic 63–74; PULSE 62–97; RESP 12–19; TEMP 97.7–99.2; O2SAT 90–100
[2017-08-01] MEDS: hydrALAZINE HCL 20 MG/ML VIAL IV PUSH PRN ×2 (00:22→04:20)
[2017-08-01] MEDS: CHLORHEXIDINE GLUCONATE 2 % 1 PACK (2 CLOTHS) TOP SCH (04:00)
[2017-08-01] MEDS: SODIUM CHLOR 0.9% 1000 ML INJ 1,000 ML IV SCH (04:11)
[2017-08-01 05:04] LABS: HEMATOCRIT 42.9 % (35.0-46.0); MEAN CELL VOLUME 88.2 FL (80.0-100.0); MEAN CORPUSCULAR HGB CONC 32.9 % (32.0-36.0); PLATELET COUNT 190 TH/MM3 (150-450); RED BLOOD COUNT 4.86 MIL/MM3 (4.00-5.30); RED CELL DISTRIBUTION WIDTH 13.6 % (11.6-17.2); REVIEW FLAG FINAL; WHITE BLOOD COUNT 6.7 TH/MM3 (4.0-11.0)
[2017-08-01 05:19] LABS: ANION GAP 5 MEQ/L (5-15); BICARBONATE 28.9 MEQ/L (21.0-32.0); BLOOD UREA NITROGEN 7 MG/DL (7-18); CHLORIDE 105 MEQ/L (98-107); GLOMERULAR FILTRATION RATE 87 ML/MIN (>89); POTASSIUM 3.9 MEQ/L (3.5-5.1); SODIUM (NA) 139 MEQ/L (136-145)
[2017-08-01 05:22] LABS: HDL CHOLESTEROL 54.1 MG/DL (40.0-60.0); LDL CHOLESTEROL 153 MG/DL (0-99)
[2017-08-01] MEDS ORDERED: amLODIPine BESYLATE 5 MG TAB PO SCH (09:00)
--- NOTE | 2017-08-01 09:20 | HHI.NSPN ---
(Alex Bales) History Chief Complaint: No complaints. (Alex Bales) Interval History 07/30: The patient is a 77-year-old female who presented to the emergency room less than an hour after developing altered mental status. According to a friend who brought her to the emergency room, the patient was relatively normal this morning. However shortly before arrival in the emergency room she became disoriented, confused, but no significant slurred speech or other deficit. She has been ambulating well. No definite weakness. No complaint of headache nausea vomiting or vision problems. 07/31/17: Doing well with diet, ambulated well in therapy today. No complaint of headache. 08/01: The patient is doing well this morning and has no complaints. She is sitting up in the chair, eating breakfast and visiting with a friend. (Alex Bales) System Review Comments Constitutional: Patient denies any fever or chills. HEENT: Patient denies any visual or hearing difficulty. Respiratory: Patient denies any shortness of breath, wheezing or productive cough. Cardiovascular: Patient denies any chest pain, palpitations or irregular heartbeat. Gastrointestinal: Patient complains of constipation. She denies any abdominal pain, nausea, vomiting or incontinence of stool. Genitourinary: Patient denies any incontinence of urine. Musculoskeletal: Patient denies any pain to the neck, back or extremities. She denies any weakness to the extremities. Neurologic: Patient denies any headache, dizziness, numbness or tingling. She also denies any difficulty with finding words. (Alex Bales) Exam Results Allergies 07/30/17 07/30/17 07/31/17 07/31/17 08/01/17 08/01/17 06:00 18:00 06:00 18:00 06:00 18:00 Intake Total 1792 ml 1846 ml 50 ml Output Total 1000 ml 1600 ml Balance 792 ml 246 ml 50 ml Intake Oral 0 ml 480 ml 50 ml IV Total 1792 ml 1366 ml Output Urine Total 1000 ml 1600 ml # Voids 1 2 # Bowel Movements 0 0 0 Vital Signs Date Time Temp Pulse Resp B/P (MAP) Pulse Ox O2 Delivery O2 Flow Rate FiO2 08/01/17 07:59 95 08/01/17 07:00 96 Room Air 08/01/17 06:00 74 08/01/17 04:00 99.0 69 12 166/72 (103) 99 08/01/17 04:00 97 08/01/17 02:00 72 08/01/17 00:00 97.8 63 19 150/63 (92) 100 08/01/17 00:00 63 07/31/17 22:00 61 07/31/17 20:16 96 07/31/17 20:00 74 07/31/17 20:00 98.5 74 20 124/88 (100) 97 07/31/17 19:00 100 Nasal Cannula 2.00 07/31/17 16:00 98.6 72 23 140/63 (88) 07/31/17 12:00 98.6 70 07/31/17 08:22 95 Nasal Cannula 2.00 07/31/17 08:00 98.5 72 20 128/58 (81) 97 07/31/17 07:00 95 Room Air 07/31/17 06:00 69 07/31/17 06:00 97.5 63 20 127/58 (81) 96 07/31/17 05:50 75 121/56 07/31/17 04:00 83 07/31/17 04:00 97.5 83 16 129/59 (82) 96 07/31/17 02:00 80 07/31/17 00:25 59 132/61 07/31/17 00:00 80 07/31/17 00:00 97.8 78 16 147/67 (93) 98 07/30/17 22:00 80 07/30/17 20:37 73 131/60 07/30/17 20:35 98 Nasal Cannula 2.00 07/30/17 20:00 97.9 80 16 131/60 (83) 97 07/30/17 20:00 80 07/30/17 19:00 98 Nasal Cannula 2.00 07/30/17 18:29 98 Nasal Cannula 2.00 07/30/17 18:02 108 16 150/78 (102) 98 Nasal Cannula 2.00 07/30/17 17:10 99 16 179/77 (111) 100 Nasal Cannula 2.00 07/30/17 16:37 104 16 173/72 (105) 97 Nasal Cannula 2.00 07/30/17 16:10 108 16 189/87 (121) 100 Nasal Cannula 2.00 07/30/17 15:42 91 213/98 07/30/17 15:17 91 16 213/98 (136) 100 Nasal Cannula 2.00 07/30/17 15:00 98 2.00 07/30/17 14:43 98.5 83 20 237/108 (151) 94 Room Air (Alex Bales) Physical Examination GENERAL: The patient is in no apparent distress this morning. She readily interacts and smiles. Her affect is normal. SKIN: Warm, dry & intact w/o any apparent rashes, ulcerations or other lesions. HEENT: Normocephalic, atraumatic. PERRLA 3 mm brisk, EOMI. MMM & pink, tongue midline to protrusion. NECK: Active full ROM w/o pain, no JVD, trachea midline. CARDIOVASCULAR: S1S2 w/RRR w/o M/G/R, radial & pedal pulses 2+ bilaterally, cap refill < 2 sec, no pedal edema. Monitor is sinus rhythm w/o any ectopy noted. RESPIRATORY: CTAB w/o W/R/R, equal excursion, nonlaboured, on RA. GASTROINTESTINAL: Abdomen, soft, nontender, positive bowel sounds. MUSCULOSKELETAL: CRANDALL w/o difficulty, no evident deformity or clubbing. NEUROLOGICAL: Awake, alert & oriented to person, place & month but not year. Speech clear & appropriate. Follows simple commands w/o difficulty. CN II-XII appear grossly intact. Sensation to light touch intact to all extremities. Motor strength 5/5 to all major flexion & extension muscle groups. (Alex Bales) Lab, Micro, Other Results Recent Impressions Head CT 07/31/17 0600 Signed Impressions: Service Date/Time: Monday, July 31, 2017 04:55 - CONCLUSION: Stable brain appearance Gee Naik MD Carotid Artery Ultrasound 07/31/17 0000 Signed Impressions: Service Date/Time: Monday, July 31, 2017 10:28 - CONCLUSION: Negative examination for a hemodynamically significant carotid stenosis. Board Certified Radiologist. This report was verified electronically. Head CT 07/30/17 1439 Signed Impressions: Service Date/Time: Sunday, July 30, 2017 15:02 - CONCLUSION: 1. Small focal region of intra-axial hemorrhage in the posterior parietal high convexity subcortical white matter measuring 1.6 x 0.9 cm with associated regional loss of cloud-white matter differentiation. Mild associated edema and minimal mass effect. No evidence for extra-axial hemorrhage, hydrocephalus, or herniation at this time. Findings are most consistent with hemorrhagic transformation of small posterior left MCA territory infarct. Differential considerations include mass with lesional hemorrhage. Jeremías Melton MD Chest X-Ray 07/30/17 1439 Signed Impressions: Service Date/Time: Sunday, July 30, 2017 15:20 - CONCLUSION: 1. No acute cardiopulmonary disease. Jeremías Melton MD Laboratory Tests Test 07/30/17 15:12 07/31/17 04:43 07/31/17 07:15 08/01/17 04:02 White Blood Count 6.0 TH/MM3 7.7 TH/MM3 6.7 TH/MM3 Red Blood Count 4.99 MIL/MM3 4.72 MIL/MM3 4.86 MIL/MM3 Hemoglobin 14.5 GM/DL 13.8 GM/DL 14.1 GM/DL Bedside Hemoglobin 14.3 G/DL Hematocrit 43.0 % 41.0 % 42.9 % Bedside Hematocrit 42.0 % Mean Corpuscular Volume 86.2 FL 86.8 FL 88.2 FL Mean Corpuscular Hemoglobin 29.0 PG 29.3 PG 29.0 PG Mean Corpuscular Hemoglobin Concent 33.7 % 33.8 % 32.9 % Red Cell Distribution Width 13.8 % 13.6 % 13.6 % Platelet Count 201 TH/MM3 201 TH/MM3 190 TH/MM3 Mean Platelet Volume 8.4 FL 8.1 FL 8.4 FL Neutrophils (%) (Auto) 59.5 % 73.6 % Lymphocytes (%) (Auto) 34.0 % 20.6 % Monocytes (%) (Auto) 5.0 % 4.7 % Eosinophils (%) (Auto) 1.2 % 0.6 % Basophils (%) (Auto) 0.3 % 0.5 % Neutrophils # (Auto) 3.6 TH/MM3 5.7 TH/MM3 Lymphocytes # (Auto) 2.0 TH/MM3 1.6 TH/MM3 Monocytes # (Auto) 0.3 TH/MM3 0.4 TH/MM3 Eosinophils # (Auto) 0.1 TH/MM3 0.0 TH/MM3 Basophils # (Auto) 0.0 TH/MM3 0.0 TH/MM3 CBC Comment DIFF FINAL DIFF FINAL Differential Comment Prothrombin Time 10.2 SEC 10.3 SEC Prothromb Time International Ratio 0.9 RATIO 0.9 RATIO Activated Partial Thromboplast Time 27.1 SEC 26.8 SEC Bedside Sodium 139 MMOL/L Blood Urea Nitrogen 13 MG/DL 7 MG/DL 7 MG/DL Creatinine 0.72 MG/DL 0.50 MG/DL 0.66 MG/DL Random Glucose 118 MG/DL 117 MG/DL 99 MG/DL Total Protein 7.5 GM/DL 7.1 GM/DL Albumin 4.0 GM/DL 3.7 GM/DL Calcium Level 9.4 MG/DL 8.8 MG/DL 9.0 MG/DL Magnesium Level 2.2 MG/DL 2.1 MG/DL Alkaline Phosphatase 111 U/L 102 U/L Aspartate Amino Transf (AST/SGOT) 14 U/L 11 U/L Alanine Aminotransferase (ALT/SGPT) 14 U/L 13 U/L Total Bilirubin 0.3 MG/DL 0.4 MG/DL Sodium Level 138 MEQ/L 139 MEQ/L 139 MEQ/L Potassium Level 3.7 MEQ/L 3.5 MEQ/L 3.9 MEQ/L Chloride Level 103 MEQ/L 106 MEQ/L 105 MEQ/L Carbon Dioxide Level 25.3 MEQ/L 25.8 MEQ/L 28.9 MEQ/L Bedside Potassium 3.7 MMOL/L Bedside Chloride 102 MMOL/L Anion Gap 10 MEQ/L 7 MEQ/L 5 MEQ/L Bedside Blood Urea Nitrogen 14 MG/DL Bedside Creatinine 0.7 MG/DL Estimat Glomerular Filtration Rate 78 ML/MIN 119 ML/MIN 87 ML/MIN Bedside Glucose 123 MG/DL Total Creatine Kinase 113 U/L Creatine Kinase MB 1.6 NG/ML Troponin I LESS THAN 0.02 NG/ML Thyroid Stimulating Hormone 3rd Gen 1.480 uIU/ML Phosphorus Level 2.0 MG/DL Lactic Acid Level 0.6 mmol/L Nasal Screen MRSA (PCR) MRSA NOT DETECTED Triglycerides Level 151 MG/DL Cholesterol Level 237 MG/DL LDL Cholesterol 153 MG/DL HDL Cholesterol 54.1 MG/DL Cholesterol/HDL Ratio 4.38 RATIO (Alex Bales) Medical Decision Making Impression and Plan Impression: 1. Small intra-axial haemorrhage in the posterior parietal high convexity CT scan 07/31/17 improved compared to admission Patient is doing well and is neurologically intact w/o any right-sided hemiparesis. She does have some mild confusion. Plan: Primary management per Film Flat Inspector/Hospitalist. Neuro checks. Stat CT brain for any worsening of neuro status. Maintain SBP between 110 and 150 mm Hg. Mobilise patient w/assistance as needed. PT eval & tx. ST eval & tx. (Alex Bales) Attending Statement The exam, history, and the medical decision-making described in the above note were completed with the assistance of the mid-level provider. I reviewed and agree with the findings presented. I attest that I had a [id number] encounter with the patient on the same day, and personally performed and documented my assessment and findings in the medical record. On my examination today the patient remains awake and alert. No focal neurologic deficit She still has mild expressive speech deficit. No object naming deficit noted on exam today. Discussed with the patient and family. Her most recent CT scan revealed good early improvement in the small parenchymal hemorrhage. She is stable for discharge from a neurosurgical standpoint. I emphasized the importance of good control of blood pressure, avoidance of aspirin and NSAIDs for the next 4-6 weeks. All questions were answered. (Radhames Slaughter MD) Alex Bales Aug 01, 2017 09:20 Radhames Slaughter MD Aug 01, 2017 21:26
[2017-08-01] MEDS: LISINOPRIL 5 MG TAB PO SCH (09:35)
[2017-08-01] MEDS: FAMOTIDINE 20 MG/2 ML VIAL IV PUSH SCH (09:35)
[2017-08-01] MEDS: DOCUSATE SODIUM 50 MG/SENNA 8.6 MG TAB PO SCH ×2 (09:35→20:17)
[2017-08-01] MEDS: SODIUM CHLORIDE 0.9% FLUSH 10 ML FLUSH IV FLUSH SCH ×2 (09:35→21:00)
--- NOTE | 2017-08-01 10:01 | HHI.CCPN ---
Subjective Remarks/Hospital Course 77-year-old female. Date of admission 07/30/2017. Past medical history includes hypertension patient presented to [facility] when after adequate acute confusional state per friend at bedside. Patient was somewhat disoriented and had unsteady gait. On examination, patient does have right upper extremity weakness. Stroke alert was called and patient was sent for stat CT. Baseline laboratories were within normal limits CT braiin 07/30 revealed small focal region of intra-axial hemorrhage in the posterior parietal high convexity subcortical white matter measuring 1.6 x 0.9 cm with associated regional loss of cloud-white matter differentiation. Mild associated edema and minimal mass effect. No evidence for extra-axial hemorrhage, hydrocephalus, or herniation at this time. Findings are most consistent with hemorrhagic transformation of small posterior left MCA territory infarct. Differential considerations include mass with lesional hemorrhage. Neurosurgery was consulted. Hypertensive hemorrhage versus left MCA distribution -watershed region infarct. Recommend acute systolic blood pressure between [address] in a.m. 07/31: Currently resting in bed in no acute distress. Right-sided weakness resolved. Awake and oriented person place but not year. Expressive aphasia much improved. Denies headache. SUBJECTIVE: 08/01: Afebrile. Received when necessary's will pressure overnight. Off Cardene drip. Mildly confused/doesn't know year however strength and sensation equal bilaterally. Objective Vital Signs Date Time Temp Pulse Resp B/P (MAP) Pulse Ox O2 Delivery O2 Flow Rate FiO2 08/01/17 07:59 95 08/01/17 07:00 Room Air 08/01/17 06:00 74 08/01/17 04:00 99.0 12 166/72 (103) 07/31/17 19:00 2.00 Intake and Output 08/01/17 08/01/17 08/02/17 08:00 16:00 00:00 Intake Total 50 ml Balance 50 ml Result Diagram: 08/01/17 0402 08/01/17 0402 Imaging Last Impressions Head CT 07/31/17 0600 Signed Impressions: Service Date/Time: Monday, July 31, 2017 04:55 - CONCLUSION: Stable brain appearance Gee Naik MD Carotid Artery Ultrasound 07/31/17 0000 Signed Impressions: Service Date/Time: Monday, July 31, 2017 10:28 - CONCLUSION: Negative examination for a hemodynamically significant carotid stenosis. Board Certified Radiologist. This report was verified electronically. Chest X-Ray 07/30/17 5520 Signed Impressions: Service Date/Time: Sunday, July 30, 2017 15:20 - CONCLUSION: 1. No acute cardiopulmonary disease. Jeremías Melton MD Objective Remarks GENERAL: 69-year-old female, critically ill currently resting in bed in no acute distress SKIN: Warm and dry. HEAD: Atraumatic. Normocephalic. EYES: Pupils equal and round. No scleral icterus. No injection or drainage. ENT: No nasal bleeding or discharge. Mucous membranes pink and moist. NECK: Trachea midline. No JVD. CARDIOVASCULAR: Regular rate and rhythm. S1, S2. No S4. RESPIRATORY: No accessory muscle use. Clear to auscultation. Breath sounds equal bilaterally. GASTROINTESTINAL: Abdomen soft, non-tender, nondistended. Hepatic and splenic margins not palpable. MUSCULOSKELETAL: Extremities without clubbing, cyanosis, or edema. No obvious deformities. NEUROLOGICAL: Awake and alert. No obvious cranial nerve deficits. Motor grossly within normal limits. Five out of 5 muscle strength in the arms and legs. Expressive aphasia A/P Assessment and Plan Neuro/Psych: Left parietal intraaxial hemorrhage Expressive aphasia CT brain 07/30 - Small focal region of intra-axial hemorrhage in the posterior parietal high convexity subcortical white matter measuring 1.6 x 0.9 cm with associated regional loss of cloud-white matter differentiation. Mild associated edema and minimal mass effect. No evidence for extra-axial hemorrhage, hydrocephalus, or herniation at this time. Findings are most consistent with hemorrhagic transformation of small posterior left MCA territory infarct. Neurosurgery - Dr. Slaughter recommends to systolic pressure between 110-150. repeat head CT in a.m. 07/31 stable CV: Hypertension crisis Dyslipidemia As needed labetalol, hydralazine and Nitropaste ordered as well We'll start lisinopril 10 mg twice a day and amlodipine 2.5 mg twice daily and hydrochlorothiazide 25 mg daily Starting atorvastatin 10 mg daily. Cholesterol 233. Patient is noncompliant with anti-hypertensive according to people bedside Resp: Nasal cannula to maintain saturations greater than equal to 92% Incentive spirometry while awake GI: Heart healthy diet Famotidine for GI prophylaxis Docusate sodium/senna for bowel regimen : No indication for Morales catheter Endo: Sliding-scale insulin if indicated to maintain euglycemia Renal: Creatinine currently within normal limits Discontinue IV fluids Heme: CBC and coags within normal limits ID: Monitor for infection MSK: Physical therapy evaluate and treat FEN: Replace electrolytes as clinically indicated Access - Utilize peripheral IV. Central line if indicated Prophylaxis - GI -famotidine - DVT - SCD/pharmacological prophylaxis contra indicated with intracerebral hemorrhage Level II follow-up Patient is stable from a critical care medicine standpoint. Assign care to hospitalist in 08/02. Rashad Farah MD Aug 01, 2017 10:01
[2017-08-01] MEDS: ACETAMINOPHEN 325 MG TAB PO PRN ×2 (10:57→17:33)
[2017-08-01] MEDS ORDERED: HYDROCHLOROTHIAZIDE 25 MG TAB PO ONE (12:00)
[2017-08-01 16:02] LABS: HEMOGLOBIN A1a 1.1 %; HEMOGLOBIN A1b 1.7 %; HEMOGLOBIN Ao 85.1 %; HEMOGLOBIN LA1C 1.9 %; HEMOGLOBIN P3 3.6 %
[2017-08-01] MEDS ORDERED: ACETAMINOPHEN 1000 MG/100 ML 100 ML IV PRN (18:00)
[2017-08-01] MEDS ORDERED: LABETALOL HCL 100 MG/20 ML VIAL IV PUSH PRN (18:00)
[2017-08-01] MEDS ORDERED: hydrALAZINE HCL 20 MG/ML VIAL IV PUSH PRN (18:00)
[2017-08-01] MEDS: LABETALOL HCL 100 MG/20 ML VIAL IV PUSH PRN (18:46)
[2017-08-01] MEDS: FAMOTIDINE 20 MG TAB PO SCH (20:17)
[2017-08-01] MEDS: amLODIPine BESYLATE 5 MG TAB PO SCH (20:18)
[2017-08-01] MEDS: LISINOPRIL 10 MG TAB PO SCH (20:18)
[2017-08-02] VITALS: BP 144/65; PULSE 64; RESP 18; TEMP 97.8; O2SAT 94
[2017-08-02 04:00] VITALS: BP 143/67; PULSE 81; RESP 19; TEMP 97.9; O2SAT 95
[2017-08-02] MEDS: CHLORHEXIDINE GLUCONATE 2 % 1 PACK (2 CLOTHS) TOP SCH (04:00)
[2017-08-02] MEDS: ONDANSETRON HCL 4 MG/2 ML VIAL IV PUSH PRN (05:16)
[2017-08-02] MEDS: ACETAMINOPHEN 325 MG TAB PO PRN ×2 (05:23→12:53)
[2017-08-02 07:58] LABS: BICARBONATE 30.8 MEQ/L (21.0-32.0); POTASSIUM 3.7 MEQ/L (3.5-5.1)
[2017-08-02 08:00] VITALS: BP 156/75; PULSE 68; RESP 20; TEMP 97.9; O2SAT 94
[2017-08-02] MEDS: amLODIPine BESYLATE 5 MG TAB PO SCH (08:08)
[2017-08-02] MEDS: LISINOPRIL 10 MG TAB PO SCH (08:08)
[2017-08-02] MEDS: DOCUSATE SODIUM 50 MG/SENNA 8.6 MG TAB PO SCH (08:09)
[2017-08-02] MEDS: SODIUM CHLORIDE 0.9% FLUSH 10 ML FLUSH IV FLUSH SCH (08:09)
[2017-08-02] MEDS: FAMOTIDINE 20 MG TAB PO SCH (08:09)
[2017-08-02] MEDS ORDERED: HYDROCHLOROTHIAZIDE 25 MG TAB PO SCH (09:00)
[2017-08-02] MEDS ORDERED: ATORVASTATIN 10 MG TAB PO SCH (09:00)
[2017-08-02] MEDS ORDERED: LISINOPRIL 10 MG TAB PO ONE ×2 (09:15→13:00)
--- NOTE | 2017-08-02 09:39 | HHI.NSPN ---
(Alex Bales) History Chief Complaint: No complaints. (Alex Bales) Interval History 07/30: The patient is a 77-year-old female who presented to the emergency room less than an hour after developing altered mental status. According to a friend who brought her to the emergency room, the patient was relatively normal this morning. However shortly before arrival in the emergency room she became disoriented, confused, but no significant slurred speech or other deficit. She has been ambulating well. No definite weakness. No complaint of headache nausea vomiting or vision problems. 07/31/17: Doing well with diet, ambulated well in therapy today. No complaint of headache. 08/01: The patient is doing well this morning and has no complaints. She is sitting up in the chair, eating breakfast and visiting with a friend. 08/02: This morning the patient is seen in rounds with Dr. Slaughter. She is awake in bed visiting with her son. She has no complaints but did endorse some nausea. Her son states that she is doing a "100% better" in carrying on a conversation. The undersigned acts as a scribe for the remainder of this note. (Alex Bales) System Review Comments The patient endorses some nausea. She denies any headache, visual difficulty, numbness or tingling. (Alex Bales) Exam Results Vital Signs Date Time Temp Pulse Resp B/P (MAP) Pulse Ox O2 Delivery O2 Flow Rate FiO2 08/02/17 08:00 97.9 68 20 156/75 (102) 94 08/02/17 04:00 97.9 81 19 143/67 (92) 95 08/02/17 00:00 97.8 64 18 144/65 (91) 94 08/01/17 21:10 Nasal Cannula 2.00 08/01/17 20:45 Nasal Cannula 2.00 08/01/17 20:30 97.7 65 17 132/63 (86) 95 08/01/17 19:00 100 Nasal Cannula 2.00 08/01/17 19:00 76 08/01/17 18:00 72 08/01/17 16:00 98.4 74 17 130/74 (92) 94 08/01/17 16:00 74 08/01/17 14:00 88 08/01/17 12:00 63 08/01/17 12:00 99.2 62 18 147/69 (95) 90 08/01/17 10:00 74 08/01/17 08:00 97.9 62 17 146/66 (92) 93 08/01/17 08:00 83 08/01/17 07:59 95 08/01/17 07:00 96 Room Air 08/01/17 06:00 74 08/01/17 04:00 99.0 69 12 166/72 (103) 99 08/01/17 04:00 97 08/01/17 02:00 72 08/01/17 00:00 97.8 63 19 150/63 (92) 100 08/01/17 00:00 63 07/31/17 22:00 61 07/31/17 20:16 96 07/31/17 20:00 74 07/31/17 20:00 98.5 74 20 124/88 (100) 97 07/31/17 19:00 100 Nasal Cannula 2.00 07/31/17 16:00 98.6 72 23 140/63 (88) 07/31/17 12:00 98.6 70 07/31/17 08:22 95 Nasal Cannula 2.00 07/31/17 08:00 98.5 72 20 128/58 (81) 97 07/31/17 07:00 95 Room Air 07/31/17 06:00 69 07/31/17 06:00 97.5 63 20 127/58 (81) 96 07/31/17 05:50 75 121/56 07/31/17 04:00 83 07/31/17 04:00 97.5 83 16 129/59 (82) 96 07/31/17 02:00 80 07/31/17 00:25 59 132/61 07/31/17 00:00 80 07/31/17 00:00 97.8 78 16 147/67 (93) 98 07/30/17 22:00 80 07/30/17 20:37 73 131/60 07/30/17 20:35 98 Nasal Cannula 2.00 07/30/17 20:00 97.9 80 16 131/60 (83) 97 07/30/17 20:00 80 07/30/17 19:00 98 Nasal Cannula 2.00 07/30/17 18:29 98 Nasal Cannula 2.00 07/30/17 18:02 108 16 150/78 (102) 98 Nasal Cannula 2.00 07/30/17 17:10 99 16 179/77 (111) 100 Nasal Cannula 2.00 07/30/17 16:37 104 16 173/72 (105) 97 Nasal Cannula 2.00 07/30/17 16:10 108 16 189/87 (121) 100 Nasal Cannula 2.00 07/30/17 15:42 91 213/98 07/30/17 15:17 91 16 213/98 (136) 100 Nasal Cannula 2.00 07/30/17 15:00 98 2.00 07/30/17 14:43 98.5 83 20 237/108 (151) 94 Room Air (Alex Bales) Physical Examination The patient is awake, alert and oriented this morning. Her speech is clear and appropriate. She follows simple commands without any difficulty. Sensation is intact to light touch to all extremites. Motor strength is strong and symmetrical to all extremities. (Alex Bales) Lab, Micro, Other Results Recent Impressions Head CT 07/31/17 0600 Signed Impressions: Service Date/Time: Monday, July 31, 2017 04:55 - CONCLUSION: Stable brain appearance Gee Naik MD Carotid Artery Ultrasound 07/31/17 0000 Signed Impressions: Service Date/Time: Monday, July 31, 2017 10:28 - CONCLUSION: Negative examination for a hemodynamically significant carotid stenosis. Board Certified Radiologist. This report was verified electronically. Head CT 07/30/17 1439 Signed Impressions: Service Date/Time: Sunday, July 30, 2017 15:02 - CONCLUSION: 1. Small focal region of intra-axial hemorrhage in the posterior parietal high convexity subcortical white matter measuring 1.6 x 0.9 cm with associated regional loss of cloud-white matter differentiation. Mild associated edema and minimal mass effect. No evidence for extra-axial hemorrhage, hydrocephalus, or herniation at this time. Findings are most consistent with hemorrhagic transformation of small posterior left MCA territory infarct. Differential considerations include mass with lesional hemorrhage. Jeremías Melton MD Chest X-Ray 07/30/17 3459 Signed Impressions: Service Date/Time: Sunday, July 30, 2017 15:20 - CONCLUSION: 1. No acute cardiopulmonary disease. Jeremías Melton MD 07/31/17 07/31/17 08/01/17 08/01/17 08/02/17 08/02/17 06:00 18:00 06:00 18:00 06:00 18:00 Intake Total 1792 ml 1846 ml 50 ml Output Total 1000 ml 1600 ml 0 ml Balance 792 ml 246 ml 50 ml 0 ml Intake Oral 0 ml 480 ml 50 ml IV Total 1792 ml 1366 ml Output Urine Total 1000 ml 1600 ml Stool Total 0 ml # Voids 1 2 3 2 # Bowel Movements 0 0 0 0 Laboratory Tests Test 07/30/17 15:12 07/31/17 04:43 07/31/17 07:15 08/01/17 04:02 White Blood Count 6.0 TH/MM3 7.7 TH/MM3 6.7 TH/MM3 Red Blood Count 4.99 MIL/MM3 4.72 MIL/MM3 4.86 MIL/MM3 Hemoglobin 14.5 GM/DL 13.8 GM/DL 14.1 GM/DL Bedside Hemoglobin 14.3 G/DL Hematocrit 43.0 % 41.0 % 42.9 % Bedside Hematocrit 42.0 % Mean Corpuscular Volume 86.2 FL 86.8 FL 88.2 FL Mean Corpuscular Hemoglobin 29.0 PG 29.3 PG 29.0 PG Mean Corpuscular Hemoglobin Concent 33.7 % 33.8 % 32.9 % Red Cell Distribution Width 13.8 % 13.6 % 13.6 % Platelet Count 201 TH/MM3 201 TH/MM3 190 TH/MM3 Mean Platelet Volume 8.4 FL 8.1 FL 8.4 FL Neutrophils (%) (Auto) 59.5 % 73.6 % Lymphocytes (%) (Auto) 34.0 % 20.6 % Monocytes (%) (Auto) 5.0 % 4.7 % Eosinophils (%) (Auto) 1.2 % 0.6 % Basophils (%) (Auto) 0.3 % 0.5 % Neutrophils # (Auto) 3.6 TH/MM3 5.7 TH/MM3 Lymphocytes # (Auto) 2.0 TH/MM3 1.6 TH/MM3 Monocytes # (Auto) 0.3 TH/MM3 0.4 TH/MM3 Eosinophils # (Auto) 0.1 TH/MM3 0.0 TH/MM3 Basophils # (Auto) 0.0 TH/MM3 0.0 TH/MM3 CBC Comment DIFF FINAL DIFF FINAL Differential Comment Prothrombin Time 10.2 SEC 10.3 SEC Prothromb Time International Ratio 0.9 RATIO 0.9 RATIO Activated Partial Thromboplast Time 27.1 SEC 26.8 SEC Bedside Sodium 139 MMOL/L Blood Urea Nitrogen 13 MG/DL 7 MG/DL 7 MG/DL Creatinine 0.72 MG/DL 0.50 MG/DL 0.66 MG/DL Random Glucose 118 MG/DL 117 MG/DL 99 MG/DL Total Protein 7.5 GM/DL 7.1 GM/DL Albumin 4.0 GM/DL 3.7 GM/DL Calcium Level 9.4 MG/DL 8.8 MG/DL 9.0 MG/DL Magnesium Level 2.2 MG/DL 2.1 MG/DL Alkaline Phosphatase 111 U/L 102 U/L Aspartate Amino Transf (AST/SGOT) 14 U/L 11 U/L Alanine Aminotransferase (ALT/SGPT) 14 U/L 13 U/L Total Bilirubin 0.3 MG/DL 0.4 MG/DL Sodium Level 138 MEQ/L 139 MEQ/L 139 MEQ/L Potassium Level 3.7 MEQ/L 3.5 MEQ/L 3.9 MEQ/L Chloride Level 103 MEQ/L 106 MEQ/L 105 MEQ/L Carbon Dioxide Level 25.3 MEQ/L 25.8 MEQ/L 28.9 MEQ/L Bedside Potassium 3.7 MMOL/L Bedside Chloride 102 MMOL/L Anion Gap 10 MEQ/L 7 MEQ/L 5 MEQ/L Bedside Blood Urea Nitrogen 14 MG/DL Bedside Creatinine 0.7 MG/DL Estimat Glomerular Filtration Rate 78 ML/MIN 119 ML/MIN 87 ML/MIN Bedside Glucose 123 MG/DL Total Creatine Kinase 113 U/L Creatine Kinase MB 1.6 NG/ML Troponin I LESS THAN 0.02 NG/ML Thyroid Stimulating Hormone 3rd Gen 1.480 uIU/ML Phosphorus Level 2.0 MG/DL Lactic Acid Level 0.6 mmol/L Nasal Screen MRSA (PCR) MRSA NOT DETECTED Hemoglobin A1c 6.1 % Triglycerides Level 151 MG/DL Cholesterol Level 237 MG/DL LDL Cholesterol 153 MG/DL HDL Cholesterol 54.1 MG/DL Cholesterol/HDL Ratio 4.38 RATIO Test 08/02/17 06:35 Blood Urea Nitrogen 9 MG/DL Creatinine 0.63 MG/DL Random Glucose 117 MG/DL Calcium Level 8.9 MG/DL Sodium Level 136 MEQ/L Potassium Level 3.7 MEQ/L Chloride Level 100 MEQ/L Carbon Dioxide Level 30.8 MEQ/L Anion Gap 5 MEQ/L Estimat Glomerular Filtration Rate 91 ML/MIN (Alex Bales) Medical Decision Making Impression and Plan Impression: 1. Small intra-axial haemorrhage in the posterior parietal high convexity Plan: Patient is clear for discharge from Neurosurgery's perspective. Follow up as needed. Avoid any products containing aspirin or NSAIDs (such as ibuprofen, naproxen, Aleve, etc.) for at least 4 weeks. Signs and symptoms to look for were discussed with the patient and her son. Both verbalised their understanding. (Alex Bales) Attending Statement I have personally seen and examined the patient on the date of this note. Pertinent documentation and study results have been reviewed by the undersigned. I have personally developed the treatment plan and performed medical decision making. Agree with findings, exam, and treatment plan as noted above. Examination by the undersigned today as noted above. The patient remains awake and alert. Still with mild confusion. No focal cranial nerve or extremity neurologic deficit. Discussed with the patient's family in the room today. He feels comfortable taking care of her at home. Stable for discharge from neurosurgery standpoint. Signs and symptoms to watch for fully discussed No routine follow-up CT scan head imaging plan at the present time. She may follow up as needed with neurosurgery as an outpatient. She is to avoid aspirin and NSAIDs for the next 4 weeks. Discussed blood pressure control and monitoring with the patient's family. (Radhames Slaughter MD) Alex Bales Aug 02, 2017 09:39 Radhames Slaughter MD Aug 02, 2017 19:03
[2017-08-02] MEDS ORDERED: AMLO5 PO (10:02)
[2017-08-02] MEDS ORDERED: LIPI10TA PO (10:02)
[2017-08-02] MEDS ORDERED: HYDR25TA5 PO (10:02)
[2017-08-02] MEDS ORDERED: LISI10TA3 PO (10:02)
[2017-08-02] MEDS ORDERED: SENN1TAB PO (10:02)
--- NOTE | 2017-08-02 10:04 | HHI.FF ---
Face to Face Verification Diagnosis: (1) Hypertensive crisis (2) ICH (intracerebral hemorrhage) Physical Therapy Order: Evaluate and Treat, Improve ambulation, Strength and gait training Occupational Therapy Order: Evaluate and Treat, Improve ADL, Gross motor coordination, Fine motor coordination Speech Therapy Order: To Improve: Speech and communication skills, Cognitive skills, Swallowing Home Health Nursing Order: Medical education Signs/symptoms of disease process Medication education-adverse effect I have seen patient Sheri New on 08/02/17. My clinical findings support the need for the requested home health care services because: Ltd mobility - disease progression Med compliance is questionable I certify that my clinical findings support that this patient is homebound because: Impaired cognitive ability/safety Mere Aponte MD Aug 02, 2017 10:04
--- NOTE | 2017-08-02 10:04 | HHI.DS ---
Discharge Summary Admission Date Jul 30, 2017 at 16:45 Discharge Date: Aug 02, 2017 Admitting Diagnosis intracranial hemorrhage (1) Hypertensive crisis ICD Code: I16.9 - Hypertensive crisis, unspecified Diagnosis: Principal (2) ICH (intracerebral hemorrhage) ICD Code: I61.9 - Nontraumatic intracerebral hemorrhage, unspecified Diagnosis: Principal Status: Acute Procedures see hospital course Brief History - From Admission 77-year-old female. Date of admission 07/30/2017. Past medical history includes hypertension patient presented to [facility] ED when after adequate acute confusional state per friend at bedside. Patient was somewhat disoriented and had unsteady gait. On examination, patient does have right upper extremity weakness. Stroke alert was called and patient was sent for stat CT. Baseline laboratories were within normal limits CT braiin 07/30 revealed small focal region of intra-axial hemorrhage in the posterior parietal high convexity subcortical white matter measuring 1.6 x 0.9 cm with associated regional loss of cloud-white matter differentiation. Mild associated edema and minimal mass effect. No evidence for extra-axial hemorrhage, hydrocephalus, or herniation at this time. Findings are most consistent with hemorrhagic transformation of small posterior left MCA territory infarct. Differential considerations include mass with lesional hemorrhage. CBC/BMP: 08/01/17 0402 08/02/17 0635 Significant Findings Laboratory Tests Test 07/30/17 15:12 07/31/17 04:43 07/31/17 07:15 08/01/17 04:02 Random Glucose 118 MG/DL (74-106) 117 MG/DL (74-106) Aspartate Amino Transf (AST/SGOT) 14 U/L (15-37) 11 U/L (15-37) Estimat Glomerular Filtration Rate 78 ML/MIN (>89) 87 ML/MIN (>89) Bedside Glucose 123 MG/DL (60-95) Troponin I LESS THAN 0.02 NG/ML Neutrophils (%) (Auto) 73.6 % (16.0-70.0) Phosphorus Level 2.0 MG/DL (2.5-4.9) Hemoglobin A1c 6.1 % (4.3-6.0) Triglycerides Level 151 MG/DL (42-150) Cholesterol Level 237 MG/DL (120-200) LDL Cholesterol 153 MG/DL (0-99) Test 08/02/17 06:35 Random Glucose 117 MG/DL (74-106) Imaging Last Impressions Head CT 07/31/17 0600 Signed Impressions: Service Date/Time: Monday, July 31, 2017 04:55 - CONCLUSION: Stable brain appearance Gee Naik MD Carotid Artery Ultrasound 07/31/17 0000 Signed Impressions: Service Date/Time: Monday, July 31, 2017 10:28 - CONCLUSION: Negative examination for a hemodynamically significant carotid stenosis. Board Certified Radiologist. This report was verified electronically. Chest X-Ray 07/30/17 1439 Signed Impressions: Service Date/Time: Sunday, July 30, 2017 15:20 - CONCLUSION: 1. No acute cardiopulmonary disease. Jeremías Melton MD PE at Discharge GENERAL: in NAD CARDIOVASCULAR: Regular rate and rhythm without murmurs, gallops, or rubs. RESPIRATORY: Breath sounds equal bilaterally. No accessory muscle use. GASTROINTESTINAL: Abdomen soft, non-tender, nondistended. MUSCULOSKELETAL: No cyanosis, or edema. NEURO: AAO X 2 (able to tell me name and location. she could not remember date. ) her speech was normal. CN 2-12 intact. 5 out of 5 upper and lower extremity strength. Sensation grossly intact. Gait is also intact. Pt update on day of discharge Follow for endocrine no bleeding Patient found sitting in bed eating her breakfast. Her son is at the bedside during the interview. Patient feels like she is doing a lot better. She stated that she is ambulating on her own. When asked patient regards to speech she stated that her speech was fine. She was able to answer all questions appropriately. She is able to also told me her name and location but could not give me date her numbers. Per patient's son patient is noncompliant with her medication. She stated that she only takes her medication when she thinks she needs it. Her son stated that she is also noncompliant with her diet. Patient's son stated that she cooks very healthy food for her but she goes out in need at fast food restaurants a lot. Hospital Course Patient was evaluated due to her expressive aphasia and she was found to have a small focal region of intra-axial hemorrhage in the posterior parietal high convexity subcortical white matter measuring 1.6 x 0.9 cm with associated regional loss of cloud-white matter differentiation. Mild associated edema and minimal mass effect. No evidence for extra-axial hemorrhage, hydrocephalus, or herniation at this time. Findings are most consistent with hemorrhagic transformation of small posterior left MCA territory infarct on CT scan. Neurosurgeon intensive is consulted for management. Patient was found to have hypertensive crisis in which she was put on IV antihypertensive medication to control her blood pressure. Once that was controlled she was transitioned to oral medication. CT scan was repeated which was stable from prior CT scan. Dr. Slaughter who saw patient recommended her blood systolic blood pressures to be between 110-150. Was put on oral medication blood pressure was controlled. Before patient was to be discharged she was not given her morning dose of lisinopril and her blood pressure was found to be systolic blood pressure in the 140s. In the medical record noted that patient has systolic murmur pressure in the 170s which was not her latest blood pressure. She was given her missed dose of lisinopril before discharge. Patient's LDL was also found to be elevated in which she was put on a statin and did well. Extensive education given to patient her diagnosis and treatment especially regards to tight control the blood pressure. Cleared by neurosurgeon for discharge and she was discharged with home health care. Pt Condition on Discharge: Good Discharge Disposition: Disch w/ Home Health Serv Discharge Time: > 30 minutes Discharge Instructions DIET: Follow Instructions for: Heart Healthy Diet Additional Diet Instructions: <2 g of sodium a day Activities you can perform: Regular-No Restrictions Follow up Referrals: PCP Follow-up - 1 Week New Medications: Amlodipine (Norvasc) 5 Mg Tab 2.5 MG PO BID for hypertension, #30 TAB 0 Refills Atorvastatin (Lipitor) 10 Mg Tab 10 MG PO DAILY for high cholesterol, #30 TAB 0 Refills Hydrochlorothiazide (Hydrochlorothiazide) 25 Mg Tab 25 MG PO DAILY for hypertension, #30 TAB 0 Refills Lisinopril (Lisinopril) 10 Mg Tab 10 MG PO Q12HR for hypertension, #60 TAB 0 Refills Sennosides-Docusate Sodium (Senna Plus 8.6-50 mg) 8.6 Mg-50 Mg Tab 1 TAB PO BID for constipation, #30 TAB 0 Refills Discontinued Medications: Miscellaneous (No Current Meds) Misc Propoxyphene-N/Acetaminophen (Darvocet-N 100) Tab 1 TAB PO QIDPRStepan, #20 FOR PAIN Mere Aponte MD Aug 02, 2017 10:04
[2017-08-02 11:44] VITALS: BP 178/80; PULSE 67; RESP 20; TEMP 97.9; O2SAT 97
[2017-08-02] MEDS ORDERED: LISINOPRIL 20 MG TAB PO SCH (21:00)
[2017-08-02] MEDS ORDERED: LISINOPRIL 10 MG TAB PO SCH (21:00)
== END 2017-08-02 14:09 | disposition home health service (06) | DRG 65 ==
LOC: NEPE 14:36 → NEDA 16:45 → N03A 19:02 → N05A 08-01 21:12
PROVIDERS: ADMIT Family Medicine; ATTEND Family Medicine
DX: I60.9 Nontraumatic subarachnoid hemorrhage, unspecified (principal); I16.9 Hypertensive crisis, unspecified; R47.01 Aphasia; I10 Essential (primary) hypertension; Z91.14 Patient's other noncompliance with medication regimen; R26.81 Unsteadiness on feet; R53.1 Weakness; E78.5 Hyperlipidemia, unspecified
CPT/HCPCS: 70450; 71010; 80048; 80053; 80061; 82435; 82550; 82552; 82565; 82947; 83036; 83605; 83735; 84100; 84132; 84295; 84443; 84484; 84520; 85025; 85027; 85610; 85730; 87641; 93005; 93306; 93880; 94150; 96374; J0360; J2405; J7030; J7050

== ENCOUNTER 2017-08-21 18:10 | Inpatient (IN) | payer MEDICARE, OTHER ==
[~2017-08-21] VITALS: Ht 157.5 cm; Wt 73.1 kg
[~2017-08-21 18:10] MED LIST changes: +AMLO5 PO; -DARV PO; +HYDR25TA5 PO; +LIPI10TA PO; +LISI10TA3 PO; +SENN1TAB PO; -Z.0.NO CURRENT MEDS
[2017-08-21 18:12] VITALS: BP 206/86; PULSE 85; RESP 18; TEMP 98.4; O2SAT 96
[2017-08-21 18:40] VITALS: BP 215/94; PULSE 89; RESP 14; O2SAT 97
--- NOTE | 2017-08-21 18:44 | RADRPT ---
EXAM DATE/TIME: 08/21/2017 18:26 [facility] COMPARISON: CT BRAIN W/O CONTRAST, July 30, 2017, 15:02. CT BRAIN W/O CONTRAST, July 31, 2017, 4:55. INDICATIONS : Altered mental status. Previous intracranial hemorrhage.. RADIATION DOSE: 56.77 CTDIvol (mGy) MEDICAL HISTORY : unobtainable SURGICAL HISTORY : unobtainable ENCOUNTER: Initial ACUITY: 1 day PAIN SCALE: 0/10 LOCATION: cranial TECHNIQUE: Multiple contiguous axial images were obtained of the head. Using automated exposure control and adj ustment of the mA and/or kV according to patient size, radiation dose was kept as low as reasonably a chievable to obtain optimal diagnostic quality images. DICOM format image data is available electro nically for review and comparison. FINDINGS: CEREBRUM: The ventricles are normal for age. A subtle focal area of residual high density is again noted in th e left parietal lobe with surrounding low density edema. This is seen on images numbers 15 through 19 . No evidence of midline shift, mass lesion, or acute infarction. No extra-axial fluid collections a re seen. POSTERIOR FOSSA: The cerebellum and brainstem are intact. The 4th ventricle is midline. The cerebellopontine angle i s unremarkable. EXTRACRANIAL: The visualized portion of the orbits is intact. SKULL: The calvaria is intact. No evidence of skull fracture. CONCLUSION: 1. Subtle focal area of high density again noted in the left parietal lobe with surrounding low densi ty edema. The edema appears mildly increased from the prior studies. 2. No new hemorrhage or mass effect. Chun Campoverde MD on August 21, 2017 at 18:39 Board Certified Radiologist. This report was verified electronically.
[2017-08-21 18:59] VITALS: O2SAT 98
[2017-08-21] MEDS ORDERED: SODIUM CHLORIDE 0.9% FLUSH 10 ML FLUSH IVF PRN (19:00)
[2017-08-21] MEDS ORDERED: niCARdipine INJ 25 MG in SODIUM CHLOR 0.9% 250 ML INJ 240 ML IV PRN ×2 (19:00→19:15)
--- NOTE | 2017-08-21 19:11 | HHI.HP ---
[facility] Service Critical Care Medicine Primary Care Physician Allen Cannon MD Admission Diagnosis hypertensive emergency, intracranial bleed, altered mental status Diagnosis: Travel History International Travel<30 Days: No Contact w/Intl Traveler <30 Da: No Traveled to Known Affected Are: No History of Present Illness 77-year-old female presents for evaluation of sudden onset of confusion and expressive aphasia. Patient had a head bleed approximately 2 weeks ago when she was admitted in the intensive care unit here. This was secondary to elevated blood pressure. Her son says that today she started showing the same symptoms which concern him and he decided to bring her to the emergency room. Patient was last seen normal at 5:30 PM by her son. In the emergency department her blood pressure is 215/85. The patient is denying of any pain or headaches. No history of head injury. No nausea vomiting. She is confused and disoriented in time and place. Review of Systems ROS Unable to obtain due to patient's altered mental status/confusion Past Family Social History Allergies: Coded Allergies: meperidine (Unverified Allergy, Intermediate, 08/21/17) Penicillins (Verified Allergy, Unknown, 08/21/17) Past Medical History Hypertension Past Surgical History Bladder sling Reported Medications Reported Meds & Active Scripts Active Senna Plus 8.6-50 mg (Sennosides-Docusate Sodium) 8.6 Mg-50 Mg Tab 1 Tab PO BID Lisinopril 10 Mg Tab 10 Mg PO Q12HR Norvasc (Amlodipine Besylate) 5 Mg Tab 2.5 Mg PO BID Lipitor (Atorvastatin Calcium) 10 Mg Tab 10 Mg PO DAILY Active Ordered Medications Current Medications Medications (Trade) Dose Ordered Sig/Kade Route PRN Reason Start Time Stop Time Status Last Admin Dose Admin Amlodipine Besylate (Norvasc) 2.5 mg BID PO 08/21/17 21:00 Atorvastatin Calcium (Lipitor) 10 mg DAILY PO 08/22/17 09:00 Sodium Chloride 1,000 ml @ 84 mls/hr [id number] IV 08/21/17 19:15 08/21/17 19:32 Sodium Chloride (NS Flush) 2 ml UNSCH PRN IV FLUSH FLUSH AFTER USING IV ACCESS 08/21/17 19:15 Sodium Chloride (NS Flush) 2 ml BID IV FLUSH 08/21/17 21:00 Acetaminophen (Tylenol) 650 mg Q6H PRN PO PAIN 1-5 AND/OR FEVER >101F 08/21/17 19:15 Morphine Sulfate (Morphine Inj) 2 mg Q2H PRN IV PUSH PAIN SCALE 6 TO 10 08/21/17 19:15 Famotidine (Pepcid Inj) 20 mg Q12HR IV PUSH 08/21/17 21:00 Albuterol/ Ipratropium (Duoneb Neb) 1 ampule Q2HR NEB PRN INH WHEEZING 08/21/17 19:15 Miscellaneous Information 1 [id number] XX 08/21/17 19:15 Chlorhexidine Gluconate (Chlorhexidine 2% Cloth) 3 pack Taper DAILY@04 TOP 08/22/17 04:00 08/18/18 03:59 Chlorhexidine Gluconate (Chlorhexidine 2% Cloth) 3 pack UNSCH PRN TOP HYGIENIC CARE 08/21/17 19:15 Senna/Docusate Sodium (Amy-Colace) 1 tab BID PO 08/21/17 21:00 Magnesium Hydroxide (Milk Of Magnesia Liq) 30 ml Q12H PRN PO Mild constipation 08/21/17 19:15 Sennosides (Senokot) 17.2 mg Q12H PRN PO Moderate constipation 08/21/17 19:15 Bisacodyl (Dulcolax Supp) 10 mg DAILY PRN RECTAL SEVERE CONSITIPATION 08/21/17 19:15 Lactulose (Lactulose Liq) 30 ml DAILY PRN PO SEVERE CONSITIPATION 08/21/17 19:15 Nicardipine HCl 25 mg/Sodium Chloride 250 ml @ 50 mls/hr TITRATE PRN IV Blood pressure management 08/21/17 19:15 08/21/17 19:28 Family History Brother with diabetes. Mother and father with hypertension. Social History Social alcohol. No tobacco or IV drug use Physical Exam Vital Signs Vital Signs Date Time Temp Pulse Resp B/P (MAP) Pulse Ox O2 Delivery O2 Flow Rate FiO2 08/21/17 18:59 98 Room Air 08/21/17 18:40 89 14 215/94 (134) 97 Room Air 08/21/17 18:12 98.4 85 18 206/86 (126) 96 Room Air Physical Exam GENERAL: Awake, confused, anxious SKIN: Focused skin assessment warm/dry. HEAD: Atraumatic. Normocephalic. EYES: Pupils equal and round. No scleral icterus. No injection or drainage. ENT: No nasal bleeding or discharge. Mucous membranes pink and moist. NECK: Trachea midline. No JVD. CARDIOVASCULAR: Regular rate and rhythm. No murmur appreciated. RESPIRATORY: No accessory muscle use. Clear to auscultation. Breath sounds equal bilaterally. GASTROINTESTINAL: Abdomen soft, non-tender, nondistended. Hepatic and splenic margins not palpable. MUSCULOSKELETAL: No obvious deformities. No clubbing. No cyanosis. No edema. NEUROLOGICAL: Awake and confused, disoriented in place and time. No obvious cranial nerve deficits. Motor grossly within normal limits. Normal speech. PSYCHIATRIC: Appropriate mood and affect; insight and judgment normal. Laboratory Laboratory Tests Test 08/21/17 18:30 Caprini VTE Risk Assessment Caprini VTE Risk Assessment: Mod/High Risk (score >= 2) VTE Pharm Contraindication: Hemorrhage Caprini Risk Assessment Model Point Value = 1 Point Value = 2 Point Value = 3 Point Value = 5 Age 41-60 Minor surgery BMI > 25 kg/m2 Swollen legs Varicose veins or History of unexplained or recurrent spontaneous Oral contraceptives or hormone replacement Sepsis (< 1 month) Serious lung disease, including pneumonia (< 1 month) Abnormal pulmonary function Acute myocardial infarction Congestive heart failure (< 1 month) History of inflammatory bowel disease Medical patient at bed rest Age 61-74 Arthroscopic surgery Major open surgery (> 45 min) Laparoscopic surgery (> 45 min) Malignancy Confined to bed (> 72 hours) Immobilizing plaster cast Central venous access Age >= 75 History of VTE Family history of VTE Factor V Leiden Prothrombin [id number] Lupus anticoagulant Anticardiolipin antibodies Elevated serum homocysteine Heparin-induced thrombocytopenia Other congenital or acquired thrombophilia Stroke (< 1 month) Elective arthroplasty Hip, pelvis, or leg fracture Acute spinal cord injury (< 1 month) Prophylaxis Regimen Total Risk Factor Score Risk Level Prophylaxis Regimen 0-1 Low Early ambulation 2 Moderate Order ONE of the following: *Sequential Compression Device (SCD) *Heparin 5000 units SQ BID 3-4 Higher Order ONE of the following medications: *Heparin 5000 units SQ TID *Enoxaparin/Lovenox 40 mg SQ daily (WT < 150 kg, CrCl > 30 mL/min) *Enoxaparin/Lovenox 30 mg SQ daily (WT < 150 kg, CrCl > 10-29 mL/min) *Enoxaparin/Lovenox 30 mg SQ BID (WT < 150 kg, CrCl > 30 mL/min) AND/OR *Sequential Compression Device (SCD) 5 or more Highest Order ONE of the following medications: *Heparin 5000 units SQ TID (Preferred with Epidurals) *Enoxaparin/Lovenox 40 mg SQ daily (WT < 150 kg, CrCl > 30 mL/min) *Enoxaparin/Lovenox 30 mg SQ daily (WT < 150 kg, CrCl > 10-29 mL/min) *Enoxaparin/Lovenox 30 mg SQ BID (WT < 150 kg, CrCl > 30 mL/min) AND *Sequential Compression Device (SCD) Assessment and Plan Assessment and Plan Intracranial bleed - Rebleeds to the old lesion - Admit to ICU - Neuro checks per unit protocol - Blood pressure control - CTA brain to rule out malformation - No surgical intervention at this time - Monitor coagulation profile Hypertension - Continue Norvasc - Cardene drip to keep SBP less than 140 - Hydralazine and labetalol when necessary Dyslipidemia - Atorvastatin DVT GI prophylaxis - Teds SCDs - No pharmacological DVT prophylaxis due to ICH - Pepcid Critical Care: The total critical care time was 35 minutes. Time to perform other separately billable procedures was not included in the critical care time. Sergey Rivero MD Aug 21, 2017 19:11
[2017-08-21 19:14] LABS: AUTOMATED NEUTROPHIL # 4.1 TH/MM3 (1.8-7.7); BASOPHIL % 0.3 % (0.0-2.0); EOSINOPHIL # 0.1 TH/MM3 (0-0.4); HEMATOCRIT 40.2 % (35.0-46.0); HEMOGLOBIN 13.7 GM/DL (11.6-15.3); LYMPH % 42.7 % (9.0-44.0); LYMPHOCYTE # 3.4 TH/MM3 (1.0-4.8); MEAN CELL VOLUME 86.1 FL (80.0-100.0); MEAN CORPUSCULAR HEMOGLOBIN 29.4 PG (27.0-34.0); MEAN CORPUSCULAR HGB CONC 34.1 % (32.0-36.0); MEAN PLATELET VOLUME 8.5 FL (7.0-11.0); MONO % 5.8 % (0.0-8.0); MONOCYTE # 0.5 TH/MM3 (0-0.9); NEUT % 50.2 % (16.0-70.0); PLATELET COUNT 233 TH/MM3 (150-450); RED BLOOD COUNT 4.67 MIL/MM3 (4.00-5.30); RED CELL DISTRIBUTION WIDTH 13.3 % (11.6-17.2); WHITE BLOOD COUNT 8.1 TH/MM3 (4.0-11.0)
[2017-08-21] MEDS ORDERED: MORPHINE SULFATE 4 MG/ML INJ IV PUSH PRN (19:15)
[2017-08-21] MEDS ORDERED: CHLORHEXIDINE GLUCONATE 2 % 1 PACK (2 CLOTHS) TOP PRN (19:15)
[2017-08-21] MEDS ORDERED: BISACODYL 10 MG SUPP RECTAL PRN (19:15)
[2017-08-21] MEDS ORDERED: SENNOSIDES 8.6 MG TAB PO PRN (19:15)
[2017-08-21] MEDS ORDERED: ACETAMINOPHEN 325 MG TAB PO PRN (19:15)
[2017-08-21] MEDS ORDERED: MISCELLANEOUS NURSING INFORMATION XX SCH (19:15)
[2017-08-21] MEDS ORDERED: RESP: ALBUTEROL 2.5 MG/IPRATROPIUM 0.5 MG NEB (PRN) INH (19:15)
[2017-08-21] MEDS ORDERED: MAGNESIUM HYDROXIDE SUSP 30 ML CUP PO PRN (19:15)
[2017-08-21] MEDS ORDERED: LACTULOSE SYRUP 20 GM/30 ML CUP PO PRN (19:15)
[2017-08-21] MEDS ORDERED: SODIUM CHLORIDE 0.9% FLUSH 10 ML FLUSH IV FLUSH PRN (19:15)
[2017-08-21 19:25] LABS: INTERNATIONAL NORMALIZED RATIO 0.9 RATIO; PROTHROMBIN TIME - PATIENT 10.1 SEC (9.8-11.6)
[2017-08-21] MEDS: SODIUM CHLOR 0.9% 1000 ML INJ 1,000 ML IV SCH (19:32)
[2017-08-21 19:33] LABS: TROPONIN I LESS THAN 0.02 NG/ML (0.02-0.05)
--- NOTE | 2017-08-21 19:34 | PD ---
HPI Chief Complaint: Neuro Symptoms/ Deficits Time Seen by Provider: 18:23 Travel History International Travel<30 days: No Contact w/Intl Traveler<30days: No Traveled to known affect area: No History of Present Illness HPI 77-year-old female came to the emergency room brought by her son for sudden onset of confusion and expressive aphasia. Patient had a head bleed approximately 2 weeks ago when she was admitted in the intensive care unit here. This was secondary to elevated blood pressure. Her son says that today she started showing the same symptoms which concern him and he decided to bring her to the emergency room. Patient was last seen normal at 5:30 PM by her son. Her initial blood pressure was elevated when she arrived. Patient is denying of any pain. No history of head injury. No headache. No nausea vomiting. She is confused and disoriented in time and place. PFSH Past Medical History Narrative Medical List of her past medical, surgical, social and family history is reviewed from the nursing note. Cancer: No Cardiovascular Problems: Yes Cerebrovascular Accident: Yes Endocrine: No Genitourinary: No Hypertension: Yes Immune Disorder: No Musculoskeletal: No Neurologic: No Reproductive: No Respiratory: No Influenza Vaccination: Yes Past Surgical History Gynecologic Surgery: Yes (bladder lift) Hysterectomy: Yes Other Surgery: Yes (vericose veins) Social History Alcohol Use: Yes (rarely) Tobacco Use: No Substance Use: No Allergies-Medications (Allergen,Severity, Reaction): Coded Allergies: meperidine (Unverified Allergy, Intermediate, 08/21/17) Penicillins (Verified Allergy, Unknown, 08/21/17) Comments List of her allergies reviewed from the nursing note. Reported Meds & Prescriptions Reported Meds & Active Scripts Active Senna Plus 8.6-50 mg (Sennosides-Docusate Sodium) 8.6 Mg-50 Mg Tab 1 Tab PO BID Lisinopril 10 Mg Tab 10 Mg PO Q12HR Norvasc (Amlodipine Besylate) 5 Mg Tab 2.5 Mg PO BID Lipitor (Atorvastatin Calcium) 10 Mg Tab 10 Mg PO DAILY Narrative Medication List of her home medications reviewed from the nursing note. Review of Systems Except as stated in HPI: all other systems reviewed are Neg Neurologic: Positive: Change in Mentation Physical Exam Narrative GENERAL: Awake, confused, anxious SKIN: Focused skin assessment warm/dry. HEAD: Atraumatic. Normocephalic. EYES: Pupils equal and round. No scleral icterus. No injection or drainage. ENT: No nasal bleeding or discharge. Mucous membranes pink and moist. NECK: Trachea midline. No JVD. CARDIOVASCULAR: Regular rate and rhythm. No murmur appreciated. RESPIRATORY: No accessory muscle use. Clear to auscultation. Breath sounds equal bilaterally. GASTROINTESTINAL: Abdomen soft, non-tender, nondistended. Hepatic and splenic margins not palpable. MUSCULOSKELETAL: No obvious deformities. No clubbing. No cyanosis. No edema. NEUROLOGICAL: Awake and confused, disoriented in place and time. No obvious cranial nerve deficits. Motor grossly within normal limits. Normal speech. PSYCHIATRIC: Appropriate mood and affect; insight and judgment normal. Data Data Last Documented VS Vital Signs Date Time Temp Pulse Resp B/P (MAP) Pulse Ox O2 Delivery O2 Flow Rate FiO2 08/21/17 18:40 89 14 215/94 (134) 97 Room Air 08/21/17 18:[address] Brain W/O Iv Contrast(Rout) (08/21/17 ) Prothrombin Time / Inr (Pt) (08/21/17 18:46) Complete Blood Count With Diff (08/21/17 18:46) Basic Metabolic Panel (Bmp) (08/21/17 18:46) Troponin I (08/21/17 18:46) Urinalysis - C+S If Indicated (08/21/17 18:46) Ecg Monitoring (08/21/17 18:46) Iv Access Insert/Monitor (08/21/17 18:46) Oximetry (08/21/17 18:46) Sodium Chloride 0.9% Flush (Ns Flush) (08/21/17 19:00) Nicardipine Inj (Cardene Inj) (08/21/17 19:00) Admit Order (Ed Use Only) (08/21/17 18:54) Labs Laboratory Tests Test 08/21/17 18:30 White Blood Count 8.1 TH/MM3 Red Blood Count 4.67 MIL/MM3 Hemoglobin 13.7 GM/DL Hematocrit 40.2 % Mean Corpuscular Volume 86.1 FL Mean Corpuscular Hemoglobin 29.4 PG Mean Corpuscular Hemoglobin Concent 34.1 % Red Cell Distribution Width 13.3 % Platelet Count 233 TH/MM3 Mean Platelet Volume 8.5 FL Neutrophils (%) (Auto) 50.2 % Lymphocytes (%) (Auto) 42.7 % Monocytes (%) (Auto) 5.8 % Eosinophils (%) (Auto) 1.0 % Basophils (%) (Auto) 0.3 % Neutrophils # (Auto) 4.1 TH/MM3 Lymphocytes # (Auto) 3.4 TH/MM3 Monocytes # (Auto) 0.5 TH/MM3 Eosinophils # (Auto) 0.1 TH/MM3 Basophils # (Auto) 0.0 TH/MM3 CBC Comment DIFF FINAL Differential Comment Prothrombin Time 10.1 SEC Prothromb Time International Ratio 0.9 RATIO MDM Medical Decision Making Medical Screen Exam Complete: Yes Emergency Medical Condition: Yes Medical Record Reviewed: Yes Interpretation(s) Twelve-lead EKG was reviewed by me. Normal sinus rhythm, normal axis, nonspecific ST-T wave changes. Heart rate of 93 bpm. Differential Diagnosis Intracranial bleed, CVA, TIA Narrative Course 7:32 PM patient was sent for a stat head CT which shows a left parietal bleed with vasogenic edema. I have started the patient on a Cardene drip. I discussed the case with the injection press operator who has accepted her. I spoke with the neurosurgeon Dr. Slaughter who saw the patient last time when she was admitted and he will consult on her tomorrow. He agrees with the management so far. Results of back and within acceptable limits. Critical Care Narrative Aggregate critical care time was 45 minutes. Time to perform other separately billable procedures was not included in the critical care time. My time did not include minutes spent treating any other patients simultaneously or on activities that did not directly contribute to the patient's treatment. The services I provided to this patient were to treat and/or prevent clinically significant deterioration that could result in: Altered mental status, intracranial bleed, hypertensive emergency, Cardene drip I provided critical care services requiring my management, as noted below: Chart data review, documentation time, medication orders and management, vital sign assessments/reviewing monitor data, ordering and reviewing lab tests, ordering and interpreting/reviewing x-rays and diagnostic studies, care of the patient and discussion of the patient with the admitting physicians. Procedures EKG Prior to Arrival: No Physician Communication Physician Communication Dr. Slaughter, Dr. Rivero Diagnosis Primary Impression: Hypertensive emergency Additional Impressions: Intracranial bleed Altered mental status Qualified Codes: R41.82 - Altered mental status, unspecified Admitting Information Admitting Physician Requests: it Trevor Champagne MD Aug 21, 2017 19:34
[2017-08-21 19:36] LABS: BICARBONATE 27.5 MEQ/L (21.0-32.0); BLOOD UREA NITROGEN 15 MG/DL (7-18); CALCIUM 9.3 MG/DL (8.5-10.1); CHLORIDE 93 MEQ/L (98-107); CREATININE 0.76 MG/DL (0.50-1.00); GLOMERULAR FILTRATION RATE 74 ML/MIN (>89); GLUCOSE,RANDOM 109 MG/DL (74-106); SODIUM (NA) 129 MEQ/L (136-145)
[2017-08-21 19:44] VITALS: BP 144/69
[2017-08-21] MEDS ORDERED: PILL SPLITTER OTHER PRN (21:00)
[2017-08-21] MEDS ORDERED: FAMOTIDINE 20 MG/2 ML VIAL IV PUSH SCH (21:00)
[2017-08-21 21:12] LABS: AMORPHOUS SEDIMENT, URINE RARE; BACTERIA, URINE FEW /hpf; BILIRUBIN, URINE NEG (NEG); BLOOD, URINE NEG (NEG); GLUCOSE,URINE NEG (NEG); KETONE, URINE TRACE mg/dL (NEG); NITRITE,URINE NEG (NEG); SQUAMOUS EPITHELIAL CELL URINE 2 /hpf (0-5); URINE COLOR LIGHT-YELLOW (YELLW/STRAW); URINE LEUKOCYTE ESTERASE LARGE (NEG)
[2017-08-21 22:00] VITALS: PULSE 85
[2017-08-21] MEDS: DOCUSATE SODIUM 50 MG/SENNA 8.6 MG TAB PO SCH (22:44)
[2017-08-21] MEDS: amLODIPine BESYLATE 5 MG TAB PO SCH (22:44)
[2017-08-21 23:00] VITALS: PULSE 85
[2017-08-22] VITALS (9 sets, daily range): BP systolic 132–139; BP diastolic 60–65; PULSE 65–74; RESP 17–20; TEMP 97.6–98; O2SAT 95–98
[2017-08-22] MEDS: CHLORHEXIDINE GLUCONATE 2 % 1 PACK (2 CLOTHS) TOP SCH (04:00)
[2017-08-22] MEDS ORDERED: IOHEXOL 350 MG/ML 10 ML VIAL (for RAD DIAG) IVCONTRAST ONE (05:00)
[2017-08-22 05:02] LABS: AUTOMATED NEUTROPHIL # 4.2 TH/MM3 (1.8-7.7); BASOPHIL % 0.4 % (0.0-2.0); EOSINOPHIL # 0.1 TH/MM3 (0-0.4); EOSINOPHIL % 0.8 % (0.0-4.0); HEMATOCRIT 38.2 % (35.0-46.0); HEMOGLOBIN 13.4 GM/DL (11.6-15.3); LYMPH % 26.9 % (9.0-44.0); LYMPHOCYTE # 1.7 TH/MM3 (1.0-4.8); MEAN CELL VOLUME 85.8 FL (80.0-100.0); MEAN CORPUSCULAR HEMOGLOBIN 30.1 PG (27.0-34.0); MEAN PLATELET VOLUME 8.2 FL (7.0-11.0); MONO % 5.2 % (0.0-8.0); MONOCYTE # 0.3 TH/MM3 (0-0.9); NEUT % 66.7 % (16.0-70.0); PLATELET COUNT 194 TH/MM3 (150-450); RED BLOOD COUNT 4.46 MIL/MM3 (4.00-5.30); RED CELL DISTRIBUTION WIDTH 12.9 % (11.6-17.2); WHITE BLOOD COUNT 6.3 TH/MM3 (4.0-11.0)
[2017-08-22 05:25] LABS: PROTHROMBIN TIME - PATIENT 10.5 SEC (9.8-11.6)
[2017-08-22 05:26] LABS: ALBUMIN 3.2 GM/DL (3.4-5.0); ALKALINE PHOSPHATASE 92 U/L (45-117); ALT (GPT) 16 U/L (10-53); AST (GOT) 11 U/L (15-37); BICARBONATE 30.9 MEQ/L (21.0-32.0); BLOOD UREA NITROGEN 9 MG/DL (7-18); CALCIUM 8.5 MG/DL (8.5-10.1); CHLORIDE 98 MEQ/L (98-107); CREATININE 0.59 MG/DL (0.50-1.00); GLOMERULAR FILTRATION RATE 99 ML/MIN (>89); GLUCOSE,RANDOM 110 MG/DL (74-106); MAGNESIUM 2.1 MG/DL (1.5-2.5); PHOSPHORUS 2.4 MG/DL (2.5-4.9); SODIUM (NA) 136 MEQ/L (136-145); TOTAL BILIRUBIN ADULT 0.3 MG/DL (0.2-1.0); TOTAL PROTEIN 6.7 GM/DL (6.4-8.2)
--- NOTE | 2017-08-22 05:52 | RADRPT ---
EXAM DATE/TIME: 08/22/2017 05:00 [facility] COMPARISON: CT BRAIN W/O CONTRAST, August 21, 2017, 18:26. INDICATIONS : Altered mental status. Evaluate for AV Malformation. IV CONTRAST: 80 cc Omnipaque 350 (iohexol) IV ; Cumulative dose for multiple exams. RADIATION DOSE: 14.90 CTDIvol (mGy) ; Combined studies MEDICAL HISTORY : Hypertension. CVA. Intracranial bleed. SURGICAL HISTORY : Hysterectomy. ENCOUNTER: Subsequent ACUITY: 2 days PAIN SCALE: 0/10 LOCATION: cranial TECHNIQUE: Volumetric scanning was performed using a multi-row detector CT scanner. The data was post processed with a variety of visualization algorithms including full volume maximum intensity projection, multi -planar sliding thin slab reformation, curved planar reformation, and surface rendering techniques. Using automated exposure control and adjustment of the mA and/or kV according to patient size, radiat ion dose was kept as low as reasonably achievable to obtain optimal diagnostic quality images. DICO M format image data is available electronically for review and comparison. FINDINGS: There is excellent visualization of the major intracranial arteries out to the second-order branch ve ssels. There is no evidence for aneurysm, vessel truncation or stenosis, and no evidence for vascula r malformation. CONCLUSION: Normal examination. Gee Naik MD on August 22, 2017 at 5:46 Board Certified Radiologist. This report was verified electronically.
--- NOTE | 2017-08-22 06:08 | RADRPT ---
EXAM DATE/TIME: 08/22/2017 05:00 [facility] COMPARISON: No previous studies available for comparison. INDICATIONS : Altered mental status. Evaluate for AV Malformation. IV CONTRAST: 80 cc Omnipaque 350 (iohexol) IV ; Cumulative dose for multiple exams. RADIATION DOSE: 14.90 CTDIvol (mGy) ; Combined studies MEDICAL HISTORY : Hypertension. CVA. Intracranial bleed. SURGICAL HISTORY : None. ENCOUNTER: Subsequent ACUITY: 2 days PAIN SCALE: 0/10 LOCATION: neck Elevated flow velocities and ICA/CCA ratios have been found to correlate with increased degrees of vessel stenosis, calculated as percentage of diameter relative to a normal segment of distal ICA/CCA. TECHNIQUE: Volumetric scanning was performed using a multirow detector CT scanner. The data was post processed with a variety of visualization algorithms including full-volume maximum intensity projection, multip lanar sliding thin-slab reformation, curved-planar reformation, and surface-rendering techniques. Us ing automated exposure control and adjustment of the mA and/or kV according to patient size, radiatio n dose was kept as low as reasonably achievable to obtain optimal diagnostic quality images. DICOM f ormat image data is available electronically for review and comparison. FINDINGS: AORTIC ARCH: There is a three-vessel origin of the great vessels from the aorta. No evidence of ostial narrowing. RIGHT CAROTID: There is eccentric soft plaque encompassing the distal right common carotid artery just below the car otid bifurcation and eccentric stenosis also involving the proximal right internal carotid artery. Juan th of these lesions produce about 50% stenotic narrowing. Above the proximal right ICA, the vessel re gains normal caliber and appearance and is widely patent to the skull base LEFT CAROTID: The common carotid artery is intact. The carotid bulb has a normal configuration without ulceration or narrowing. The internal carotid artery lumen is smooth without stenosis. The external carotid ar shanna is intact. VERTEBRALS: Patent bilaterally, left side dominant. 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 Gee Naik MD on August 22, 2017 at 6:03 Board Certified Radiologist. This report was verified electronically.
[2017-08-22] MEDS: SODIUM CHLOR 0.9% 1000 ML INJ 1,000 ML IV SCH (07:56)
[2017-08-22] MEDS: DOCUSATE SODIUM 50 MG/SENNA 8.6 MG TAB PO SCH ×2 (11:37→20:37)
[2017-08-22] MEDS: ATORVASTATIN 10 MG TAB PO SCH (11:38)
[2017-08-22] MEDS: amLODIPine BESYLATE 5 MG TAB PO SCH ×2 (11:38→20:37)
--- NOTE | 2017-08-22 11:40 | HHI.CCPN ---
Subjective Remarks/Hospital Course 08/21: 77-year-old female presents for evaluation of sudden onset of confusion and expressive aphasia. Patient had a head bleed approximately 2 weeks ago when she was admitted in the intensive care unit here. This was secondary to elevated blood pressure. Her son says that today she started showing the same symptoms which concern him and he decided to bring her to the emergency room. Patient was last seen normal at 5:30 PM by her son. In the emergency department her blood pressure is 215/85. The patient is denying of any pain or headaches. No history of head injury. No nausea vomiting. She is confused and disoriented in time and place. 08/22: Resting comfortably in bed. Awake and alert. Denies any headache. Patient already evaluated by neurosurgery. No intervention planned. Objective Vital Signs Date Time Temp Pulse Resp B/P (MAP) Pulse Ox O2 Delivery O2 Flow Rate FiO2 08/22/17 06:00 66 08/21/17 22:00 95 Nasal Cannula 2.00 08/21/17 21:23 08/21/17 18:40 14 08/21/17 18:12 98.4 Intake and Output 08/22/17 08/22/17 08/23/17 08:00 16:00 00:00 Output Total 1020 ml Balance -1020 ml Result Diagram: 08/22/17 0432 08/22/17 0432 Imaging Last Impressions Head CT 08/21/17 0000 Signed Impressions: Service Date/Time: Monday, August 21, 2017 18:26 - CONCLUSION: 1. Subtle focal area of high density again noted in the left parietal lobe with surrounding low density edema. The edema appears mildly increased from the prior studies. 2. No new hemorrhage or mass effect. Chun Campoverde MD Objective Remarks GENERAL: Elderly female laying in bed not in any acute distress. SKIN: Focused skin assessment warm/dry. HEAD: Atraumatic. Normocephalic. EYES: Pupils equal and round. No scleral icterus. No injection or drainage. ENT: No nasal bleeding or discharge. Mucous membranes pink and moist. NECK: Trachea midline. No JVD. CARDIOVASCULAR: Regular rate and rhythm. No murmur appreciated. RESPIRATORY: No accessory muscle use. Clear to auscultation. Breath sounds equal bilaterally. GASTROINTESTINAL: Abdomen soft, non-tender, nondistended. Hepatic and splenic margins not palpable. MUSCULOSKELETAL: No obvious deformities. No clubbing. No cyanosis. No edema. NEUROLOGICAL: Awake alert oriented 3, No obvious cranial nerve deficits. Motor grossly within normal limits. Normal speech. PSYCHIATRIC: Appropriate mood and affect; insight and judgment normal. A/P Assessment and Plan Intracranial bleed - Rebleeds to the old lesion - Evaluated by neurosurgery and cleared for discharge with no intervention needed - Neuro checks - Blood pressure control - No surgical intervention at this time - Monitor coagulation profile Hypertension - Continue Norvasc -Off Cardene drip. - Hydralazine and labetalol when necessary Dyslipidemia - Atorvastatin DVT GI prophylaxis - Teds SCDs - No pharmacological DVT prophylaxis due to ICH - Pepcid Patient was evaluated by Dr. Slaughter who has informed patient as well as her son and CLIENT CARE MANAGER that from his point a few patient can be moved out of the ICU and discharged once medically cleared. Patient will be transferred out of the ICU. If her blood pressure stays stable overnight then be discharged tomorrow following evaluation by hospitalist. Patient will be transferred out of the ICU to hospitalist service for further medical management. Critical care signing off at this time. Please reconsult if needed Cesar Brice MD Aug 22, 2017 11:40
[2017-08-22] MEDS: SODIUM CHLORIDE 0.9% FLUSH 10 ML FLUSH IV FLUSH SCH ×2 (11:45→20:37)
--- NOTE | 2017-08-22 13:32 | EKG ---
Date Performed: 08/21/2017 Time Performed: 18:27:59 PTAGE: 77 years EKG: Sinus rhythm NONSPECIFIC ST & T-WAVE ABNORMALITY BORDERLINE ECG Compared to prior tracing no significant change PREVIOUS TRACING DOCTOR: Tim Olea Interpretating Date/Time 08/22/2017 13:29:32
[2017-08-22] MEDS: LISINOPRIL 10 MG TAB PO SCH ×2 (14:12→20:37)
[2017-08-23] VITALS: BP 155/69; PULSE 61; RESP 18; TEMP 97.9; O2SAT 93
[2017-08-23 00:45] VITALS: PULSE 68
[2017-08-23] MEDS: CHLORHEXIDINE GLUCONATE 2 % 1 PACK (2 CLOTHS) TOP SCH (01:06)
[2017-08-23 04:00] VITALS: BP 166/73; PULSE 72; RESP 18; TEMP 98.3; O2SAT 94
[2017-08-23 07:52] VITALS: BP 140/64; PULSE 69; RESP 18; TEMP 98.4; O2SAT 96
[2017-08-23] MEDS: amLODIPine BESYLATE 5 MG TAB PO SCH (07:53)
[2017-08-23] MEDS: ATORVASTATIN 10 MG TAB PO SCH (07:53)
[2017-08-23] MEDS: LISINOPRIL 10 MG TAB PO SCH (07:55)
[2017-08-23] MEDS: DOCUSATE SODIUM 50 MG/SENNA 8.6 MG TAB PO SCH (07:55)
[2017-08-23] MEDS: SODIUM CHLORIDE 0.9% FLUSH 10 ML FLUSH IV FLUSH SCH (07:56)
--- NOTE | 2017-08-23 10:34 | PD.CONS ---
History of Present Illness Service Neurosurgery Consult Requested By [employer] Reason for Consult Intracranial hemorrhage Primary Care Physician Allen Cannon MD Diagnoses: History of Present Illness This is a late entry note for consultation and evaluation completed by the undersigned on the morning of 2016 Ms. New is a 77-year-old female who was previously admitted to [facility] in July 2017 with a left parieto-occipital region and cranial hemorrhage, likely hypertensive in origin. She was discharged home August 02, 2017. Her son who accompanies her states that she has been living with him most of the time, and he has been monitoring her blood pressure and medications closely. However recently the patient has desired to be more independent, and has been driving and visiting with her friends. She also stayed with another family member for a few days this week, and he is uncertain whether or not she was taking her medication. She has a electronic blood pressure cuff at home, but does not use it routinely. Her son takes her blood pressure when she is staying with him. She returned back to the emergency room on the evening of 08/21/17. Her son states that he noted acute onset of recurrent confusion and speech difficulty at that time, and brought her back into the emergency room. Her initial blood pressure in the emergency room was 215/94. A follow-up CT scan of the head was accomplished which revealed persistent slight increased density with surrounding edema at the left parietal convexity. She was subsequently admitted to the intensive surgical care unit for control of her hypertension and close monitoring of her neurologic status. Her son states that on 08/22/17 a.m., the patient's speech and orientation have significantly improved compared to the prior evening. Review of Systems Constitutional: COMPLAINS OF: Weight loss, DENIES: Fatigue Eyes: DENIES: Blurred vision, Diplopia Ears, nose, mouth, throat: DENIES: Vertigo Respiratory: DENIES: Shortness of breath Cardiovascular: DENIES: Chest pain, Palpitations, Syncope Gastrointestinal: DENIES: Nausea Genitourinary: DENIES: Urinary incontinence Musculoskeletal: DENIES: Joint pain Hematologic/lymphatic: DENIES: Bruising Neurologic: COMPLAINS OF: Headache, DENIES: Abnormal gait Psychiatric: COMPLAINS OF: Confusion Past Family Social History Allergies: Coded Allergies: meperidine (Unverified Allergy, Intermediate, 08/21/17) Penicillins (Verified Allergy, Unknown, 08/21/17) Past Medical History Hypertension Prior intracranial hemorrhage No history of cardiac or pulmonary disease, diabetes Past Surgical History Bladder surgery Reported Medications Reported Meds & Active Scripts Active Senna Plus 8.6-50 mg (Sennosides-Docusate Sodium) 8.6 Mg-50 Mg Tab 1 Tab PO BID Lisinopril 10 Mg Tab 10 Mg PO Q12HR Norvasc (Amlodipine Besylate) 5 Mg Tab 2.5 Mg PO BID Lipitor (Atorvastatin Calcium) 10 Mg Tab 10 Mg PO DAILY Family History Her brother is diabetic Social History She drinks alcohol occasionally Does not smoke cigarettes Physical Exam Vital Signs Vital Signs Date Time Temp Pulse Resp B/P (MAP) Pulse Ox O2 Delivery O2 Flow Rate FiO2 08/23/17 09:00 Room Air 08/23/17 07:52 98.4 69 18 140/64 (89) 96 08/23/17 04:00 98.3 72 18 166/73 (104) 94 08/23/17 00:45 68 08/23/17 00:00 97.9 61 18 155/69 (97) 93 08/22/17 20:46 Room Air 08/22/17 20:00 97.7 65 18 138/61 (86) 96 08/22/17 16:00 98.0 69 20 132/60 (84) 98 08/22/17 12:00 97.8 74 20 139/64 (89) 95 08/22/17 12:00 97.6 70 17 137/64 (88) 95 08/22/17 12:00 70 Physical Exam GENERAL: This is a well-nourished, well-developed patient, no apparent distress. SKIN: No abrasions, contusion, rash noted. Skin warm and dry. HEAD: Atraumatic. Normocephalic. No temporal or scalp tenderness. EYES: Sclerae are clear and nonicteric ENT: No facial edema or ecchymosis. No periorbital edema. No CSF otorrhea or rhinorrhea. No palpable facial fracture or deformity. NECK: Trachea midline. No cervical spine tenderness. CARDIOVASCULAR: Regular rate and rhythm without murmurs, gallops, or rubs. RESPIRATORY: Clear to auscultation. Breath sounds equal bilaterally. No wheezes , rales, or rhonchi. GASTROINTESTINAL: Abdomen soft, non-tender, nondistended. No hepato-splenomegaly , or palpable masses. No guarding. MUSCULOSKELETAL: Extremities without cyanosis, or edema. No joint tenderness, or edema noted. No calf tenderness. Dorsalis pedis pulses 2+ bilateral NEUROLOGICAL: Awake and alert Oriented X month, hospital Speech is clear, somewhat hesitant. Mild difficulty with object naming. Conversant and appropriate Follow simple commands with mild difficulty Answers questions appropriately Appears to have at least mildly diminished judgment and insight Recent and remote memory are mildly impaired No evidence of anxiety or depression Pupils are equal and reactive to accommodation. Extra-ocular movements, visual horn to confrontation, facial sensorimotor, tongue, palate, sternocleidomastoid testing, hearing to finger rub testing, and bilateral shoulder shrug are all intact. Sensation is intact to light touch in all extremities Strength normal major flexion and extension groups all extremities Orlando's absent bilaterally No ankle clonus Plantar responses absent bilateral Fine motor movements intact upper extremities Laboratory Date/Time Source Procedure Growth Status 08/21/17 21:00 Urine Catheterized Urine Urine Culture - Preliminary Group D Enterococcus Resulted Result Diagram: 08/22/17 0432 08/22/17 0432 Imaging 08/21/2017 CT scan of the head as well as CTA of the head and neck images have been reviewed by the undersigned. There is a relatively stable slight area of increased attenuation at the left parietal convexity with moderate surrounding edema, not significantly changed from her prior CT scan of 07/31/17. 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 Gee Naik MD Head CTA 08/21/17 0000 Signed Impressions: Service Date/Time: August 05:00 - CONCLUSION: Normal examination. Gee Naik MD Head CT 08/21/17 0000 Signed Impressions: Service Date/Time: Monday, August 21, 2017 18:26 - CONCLUSION: 1. Subtle focal area of high density again noted in the left parietal lobe with surrounding low density edema. The edema appears mildly increased from the prior studies. 2. No new hemorrhage or mass effect. Chun Campoverde MD Assessment and Plan Assessment and Plan Impression: 1. Recurrent episode of confusion and speech deficit in a patient with prior history of left parietal hypertensive intracranial hemorrhage. No definite evidence of CVA. Symptoms are improving with control of hypertension. 2. Hypertension. Plan: Findings were discussed with the patient as well as her son in the intensive care unit on the morning of 08/22/2017. She is improving, and relatively stable from a neurologic status. No neurosurgical intervention is indicated at this point. I had a long discussion with them regarding the importance of proper monitoring of her blood pressure and compliance with medications. The patient seems to have diminished judgment and insight, probably not capable of monitoring her blood pressure medications on her own. Her son is aware of this and indicates that he will try to take measures to make certain that she is compliant, although this has been difficult since she wishes to remain independent. Her activity can be advanced as tolerated. Radhames Slaughter MD Aug 23, 2017 10:34
[2017-08-23 12:00] VITALS: BP 138/64; PULSE 65; RESP 18; TEMP 97.5; O2SAT 97
[2017-08-23 15:25] VITALS: BP 158/57; PULSE 66; RESP 18; TEMP 97.9; O2SAT 99
--- NOTE | 2017-08-23 17:18 | HHI.PR ---
Subjective Remarks No complaints. No headaches. Doing well. Wants to go home. She will be going home with her daughter. Objective Vitals Vital Signs Date Time Temp Pulse Resp B/P (MAP) Pulse Ox O2 Delivery O2 Flow Rate FiO2 08/23/17 15:25 97.9 66 18 158/57 (90) 99 08/23/17 12:00 97.5 65 18 138/64 (88) 97 08/23/17 09:00 Room Air 08/23/17 07:52 98.4 69 18 140/64 (89) 96 08/23/17 04:00 98.3 72 18 166/73 (104) 94 08/23/17 00:45 68 08/23/17 00:00 97.9 61 18 155/69 (97) 93 08/22/17 20:46 Room Air 08/22/17 20:00 97.7 65 18 138/61 (86) 96 I/O 08/22/17 08/22/17 08/22/17 08/23/17 08/23/17 08/23/17 07:00 15:00 23:00 07:00 15:00 23:00 Intake Total 422 ml Output Total 900 ml 120 ml Balance -900 ml 302 ml Intake Oral 210 ml IV Total 212 ml Output Urine Total 900 ml 120 ml # Voids 5 4 5 # Bowel Movements 2 Result Diagram: 08/22/1743108/22/17 043 Objective Remarks GENERAL: This is a well-nourished, well-developed patient, in no apparent distress. CARDIOVASCULAR: Regular rate and rhythm RESPIRATORY: Clear to auscultation. Breath sounds equal bilaterally. No wheezes , rales, or rhonchi. GASTROINTESTINAL: Abdomen soft, non-tender, nondistended. Normal active bowel sounds MUSCULOSKELETAL: Extremities without clubbing, cyanosis, or edema. NEURO: Alert & Oriented x4 to person, place, time, situation. Moves all ext x4 A/P Assessment and Plan Intracranial bleed - Rebleeds to the old lesion - Neuro checks has remained stable during the hospitalization - Blood pressure control on Norvasc and will increase to 5 mg by mouth twice a day upon discharge to home - CTA brain to rule out malformation - No surgical intervention at this time, unclear minor surgery at this time - Monitor coagulation profile Hypertension - Continue Norvasc and Lopressor overall blood pressure controlled adequately - Hydralazine and labetalol when necessary Dyslipidemia - Atorvastatin DVT GI prophylaxis - Teds SCDs - No pharmacological DVT prophylaxis due to ICH - Pepcid Discharge Planning Discharge patient to home Condition on discharge: Improved Heart healthy Diet as tolerated Ad Beatriz activity Rx written: Continue lisinopril 10 mg by mouth twice a day Increase Norvasc to 5 mg by mouth twice a day Follow-up with primary care physician Mary Carmen Levy MD Aug 23, 2017 17:18
[2017-08-23] MEDS ORDERED: AMLO5 PO (17:20)
--- NOTE | 2017-08-23 17:21 | HHI.DCPOC ---
Discharge Care Plan Diagnosis: (1) Intracranial bleed (2) Hypertensive emergency Goals to Promote Your Health * To prevent worsening of your condition and complications * To maintain your health at the optimal level Directions to Meet Your Goals Take your medications as prescribed Follow your dietary instruction Follow activity as directed Keep your appointments as scheduled Take your immunizations and boosters as scheduled If your symptoms worsen call your PCP, if no PCP go to Urgent Care Center or Emergency Room Smoking is Dangerous to Your Health. Avoid second hand smoke Call the 24-hour hour crisis hotline for domestic abuse at Mary Carmen Levy MD Aug 23, 2017 17:21
--- NOTE | 2017-08-23 17:21 | HHI.DCPOC ---
Discharge Care Plan Diagnosis: (1) Intracranial bleed (2) Hypertensive emergency Goals to Promote Your Health * To prevent worsening of your condition and complications * To maintain your health at the optimal level Directions to Meet Your Goals Take your medications as prescribed Follow your dietary instruction Follow activity as directed Keep your appointments as scheduled Take your immunizations and boosters as scheduled If your symptoms worsen call your PCP, if no PCP go to Urgent Care Center or Emergency Room Smoking is Dangerous to Your Health. Avoid second hand smoke Call the 24-hour hour crisis hotline for domestic abuse at Mary Carmen Levy MD Aug 23, 2017 17:21
--- NOTE | 2017-08-23 17:21 | HHI.DCPOC ---
Discharge Care Plan Diagnosis: (1) Intracranial bleed (2) Hypertensive emergency Goals to Promote Your Health * To prevent worsening of your condition and complications * To maintain your health at the optimal level Directions to Meet Your Goals Take your medications as prescribed Follow your dietary instruction Follow activity as directed Keep your appointments as scheduled Take your immunizations and boosters as scheduled If your symptoms worsen call your PCP, if no PCP go to Urgent Care Center or Emergency Room Smoking is Dangerous to Your Health. Avoid second hand smoke Call the 24-hour hour crisis hotline for domestic abuse at Mary Carmen Levy MD Aug 23, 2017 17:21
--- NOTE | 2017-08-23 17:25 | HHI.DS ---
Discharge Summary Admission Date Aug 21, 2017 at 18:56 Discharge Date: Aug 23, 2017 Admitting Diagnosis hypertensive emergency, intracranial bleed, altered mental status (1) Intracranial bleed ICD Code: I62.9 - Nontraumatic intracranial hemorrhage, unspecified Diagnosis: Principal Status: Acute (2) Hypertensive emergency ICD Code: I16.1 - Hypertensive emergency Diagnosis: Secondary Status: Resolved Procedures None Brief History - From Admission obtained for attending physician's history of present illness 77-year-old female presents for evaluation of sudden onset of confusion and expressive aphasia. Patient had a head bleed approximately 2 weeks ago when she was admitted in the intensive care unit here. This was secondary to elevated blood pressure. Her son says that today she started showing the same symptoms which concern him and he decided to bring her to the emergency room. Patient was last seen normal at 5:30 PM by her son. In the emergency department her blood pressure is 215/85. The patient is denying of any pain or headaches. No history of head injury. No nausea vomiting. She is confused and disoriented in time and place. CBC/BMP: 08/22/17 0432 08/22/17 0432 Significant Findings Laboratory Tests Test 08/21/17 18:30 08/21/17 21:00 08/21/17 21:16 08/22/17 04:32 Random Glucose 109 MG/DL (74-106) 110 MG/DL (74-106) Sodium Level 129 MEQ/L (136-145) Potassium Level 3.3 MEQ/L (3.5-5.1) Chloride Level 93 MEQ/L (98-107) Estimat Glomerular Filtration Rate 74 ML/MIN (>89) Troponin I LESS THAN 0.02 NG/ML Urine Turbidity HAZY (CLEAR) Urine Ketones TRACE mg/dL (NEG) Urine Leukocyte Esterase LARGE (NEG) Urine RBC 8 /hpf (0-3) Urine WBC 25 /hpf (0-5) Urine Bacteria FEW /hpf (NONE) Albumin 3.2 GM/DL (3.4-5.0) Phosphorus Level 2.4 MG/DL (2.5-4.9) Aspartate Amino Transf (AST/SGOT) 11 U/L (15-37) Imaging Last Impressions Neck CTA 08/22/17 0000 Signed Impressions: Service Date/Time: August 05:00 - CONCLUSION: Tandem 50% % stenoses involving the right carotid bulb and proximal ICA. Gee Naik MD Head CTA 08/21/17 0000 Signed Impressions: Service Date/Time: August 05:00 - CONCLUSION: Normal examination. Gee Naik MD Head CT 08/21/17 0000 Signed Impressions: Service Date/Time: Monday, August 21, 2017 18:26 - CONCLUSION: 1. Subtle focal area of high density again noted in the left parietal lobe with surrounding low density edema. The edema appears mildly increased from the prior studies. 2. No new hemorrhage or mass effect. Chun Campoverde MD PE at Discharge GENERAL: This is a well-nourished, well-developed patient, in no apparent distress. CARDIOVASCULAR: Regular rate and rhythm RESPIRATORY: Clear to auscultation. Breath sounds equal bilaterally. No wheezes , rales, or rhonchi. GASTROINTESTINAL: Abdomen soft, non-tender, nondistended. Normal active bowel sounds MUSCULOSKELETAL: Extremities without clubbing, cyanosis, or edema. NEURO: Alert & Oriented x4 to person, place, time, situation. Moves all ext x4 Hospital Course 77-year-old white female with a history of hypertension and previous recent intracranial bleed was admitted for recurrent neurological symptoms and rebleed of a recent intracranial hemorrhage. She was seen by the neurosurgery service along with intensive care unit and initially put on a Cardene drip. Her blood pressure and intracranial bleed stabilized. No surgical intervention was needed. Patient's blood pressure medication was adjusted. At this time, patient has gained maximum benefit from hospitalization and ready to be discharged to home. Pt Condition on Discharge: Good Discharge Disposition: Discharge Home Discharge Time: <= 30 minutes Discharge Instructions DIET: Follow Instructions for: Heart Healthy Diet Activities you can perform: Regular-No Restrictions Follow up Referrals: PCP Follow-up New Medications: Amlodipine (Norvasc) 5 Mg Tab 5 MG PO BID for Blood Pressure Management, #60 TAB Continued Medications: Atorvastatin (Lipitor) 10 Mg Tab 10 MG PO DAILY for high cholesterol, #30 TAB 0 Refills Lisinopril (Lisinopril) 10 Mg Tab 10 MG PO Q12HR for hypertension, #60 TAB 0 Refills Sennosides-Docusate Sodium (Senna Plus 8.6-50 mg) 8.6 Mg-50 Mg Tab 1 TAB PO BID for constipation, #30 TAB 0 Refills Discontinued Medications: Amlodipine (Norvasc) 5 Mg Tab 2.5 MG PO BID for hypertension, #30 TAB 0 Refills Mary Carmen Levy MD Aug 23, 2017 17:25
[2017-08-23] MEDS ORDERED: amLODIPine BESYLATE 5 MG TAB PO SCH (21:00)
== END 2017-08-23 19:07 | disposition home or self-care (01) | DRG 65 ==
LOC: NEPE 18:10 → NEDA 18:56 → N03B 21:12 → N05A 08-22 12:27
PROVIDERS: ADMIT Family Medicine; ATTEND Family Medicine
DX: I62.9 Nontraumatic intracranial hemorrhage, unspecified (principal); I16.1 Hypertensive emergency; R47.01 Aphasia; I10 Essential (primary) hypertension; E78.5 Hyperlipidemia, unspecified
CPT/HCPCS: 70450; 70496; 70498; 80048; 80053; 81001; 83735; 84100; 84484; 85025; 85610; 87077; 87086; 87186; 87641; 93005; 99291; J7030; J7050; Q9967